=== PATIENT | female | born 1985 | race Caucasian/White ===

== ENCOUNTER 2019-12-20 16:37 | Emergency (ER) | payer SELFPAY ==
[2019-12-20 16:44] VITALS: BP 116/96; PULSE 95; RESP 20; TEMP 36.8; O2SAT 99; BMI 24.1
[2019-12-20 16:51] VITALS: O2SAT 98
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
--- NOTE | 2019-12-20 17:01 | XR_ITS ---
WS: [id number] XR wrist RT 2V [id number] REASON FOR EXAM: injury FINDINGS: The previously described fracture impacted of the radius is showing good healing and callus is seen replacing the fracture lines in the cleavage lines have disappeared. The remaining wrist appear to be essentially normal. XR/XR wrist RT 2V [id number] IMPRESSION: Healed fracture of the radius.
[2019-12-20] MEDS: ondansetron 2 mg/ML SDV 2 mL 4 MG IVP (18:55)
[2019-12-20] MEDS: morphine 4 mg/mL SDV 1 mL IVP (18:55)
[2019-12-20 19:54] VITALS: BP 109/82; PULSE 88; RESP 16; O2SAT 97
--- NOTE | 2019-12-23 10:21 | DCPLANNER ---
guard manager had message to schedule a follow up appointment for patient with ortho. guard manager called the ortho clinic, spoke with Sondra, gave clinic patients information. guard manager was told that patients information would be printed and reviewed. Clinic will call lining caser and patient with appointment information.
--- NOTE | 2019-12-27 13:59 | DCPLANNER ---
Patient has a follow up appointment scheduled for Friday, December 27, 2019 at 1:[address] Kirkpatrick. Clinic called patient with appointment information.
--- NOTE | 2019-12-28 15:34 | DCPLANNER ---
Patient did not attend appointment scheduled for 12.27.19 with ortho.
== END 2019-12-20 19:55 | disposition home or self-care (01) ==
PROVIDERS: Emergency Provider Family Medicine; Family Provider Family Medicine; PCP Family Medicine
DX: S63.501A Unspecified sprain of right wrist, initial encounter (principal); S66.811A Strain of other specified muscles, fascia and tendons at wrist and hand level, right hand, initial encounter; S52.91XD Unspecified fracture of right forearm, subsequent encounter for closed fracture with routine healing; E66.9 Obesity, unspecified; Z68.24 Body mass index [BMI] 24.0-24.9, adult; W01.0XXA Fall on same level from slipping, tripping and stumbling without subsequent striking against object, initial encounter; X58.XXXD Exposure to other specified factors, subsequent encounter
CPT/HCPCS: 29125; 73100; 96374; 96375; 99282; 99283; J2270; J2405

== ENCOUNTER 2020-05-14 01:08 | Emergency (ER) | payer SELFPAY ==
[2020-05-14] VITALS (12 sets, daily range): BP systolic 109–153; BP diastolic 84–107; PULSE 87–125; RESP 16–119; TEMP 36.6; O2SAT 93–97; BMI 22.3
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
[2020-05-14] MEDS: ondansetron 2 mg/ML SDV 2 mL 4 MG IVP ×2 (01:43→03:13)
[2020-05-14] MEDS: morphine 4 mg/mL SDV 1 mL IVP (01:44)
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
[2020-05-14] MEDS: LORazepam 2 mg/mL INJ 1 mL 1 MG IVP (02:30)
[2020-05-14] MEDS: HYDROmorphone 1 mg/mL INJ 1 mL IVP ×2 (03:12→03:36)
[2020-05-14] MEDS: iohexol 300 mg/mL 100 mL Btl IV (03:25)
[2020-05-14 04:25] LABS: Amphetamines Screen Urine Positive (Negative); Barbiturates Screen Urine Negative (Negative); Benzodiazepines Screen Urine Positive (Negative); Cocaine Screen Urine Negative (Negative); Opiate Screen Urine Positive (Negative); PCP Screen Urine Negative (Negative); THC Screen Urine Positive (Negative)
[2020-05-14] MEDS: haloperidol inj 5 mg/mL INJ 1 mL 2 MG IVP (04:33)
[2020-05-14 04:39] LABS: Bacteria Urine 1+; Bilirubin Urine Neg (NEGATIVE); Blood Urine Neg (Negative); Glucose Urine UA Norm (Normal); Ketones Urine Negative (Negative); Leukocyte Esterase Urine Trace (Negative); Mucus Urine 1+; Nitrate Urine Negative (Negative); Protein Urine Neg (Negative); RBC Urine 0-4 /hpf (0-2); Specific Gravity, Urine 1.025 (1.005-1.030); Urine Appearance SL Hazy (CLEAR); Urine Color Yellow (Yellow); Urobilinogen Urine Norm (Negative); pH Urine 5 (5-7)
--- NOTE | 2020-05-16 09:29 | PC.SOCIAL ---
Received call from our clinic indicating our Neurosurgeon will not start until at least July and the referral will need to be sent elsewhere. Attempted to contact patient at number provided and unable to reach or leave a message. Called Contact was able to leave a message and requested a return call as well as provided this nurses number.
--- NOTE | 2020-05-21 14:41 | PC.SOCIAL ---
Call received with message left on Thursday. This nurse was out of office. Called patient back at number provided and reached her friend. Explained calling from [facility] [place] friend indicates since she could not get ahold of anyone over weekend she decided this am to go to [place] to be seen. Had sent referral to Jolie in [place] prior to this call to try and get process moving. Told friend this. Will not cancel appt. Explained to friend if they call they can determine if appt still needed. She verbalized understanding. Had images uploaded to [facility] as well.
--- NOTE | 2020-05-25 10:57 | DCPLANNER ---
Patient has a follow up appointment scheduled for Friday, June 19, 2020 at 2:30 with LOOP DRIER OPERATOR, Koko Larsen. Clinic will call patient with appointment information.
--- NOTE | 2020-07-13 10:18 | DCPLANNER ---
Patient did attend the appointment scheduled for 06.19.20 with [facility].
== END 2020-05-14 05:33 | disposition home or self-care (01) ==
PROVIDERS: Emergency Provider Emergency Medicine
DX: S32.010A Wedge compression fracture of first lumbar vertebra, initial encounter for closed fracture (principal); S22.080A Wedge compression fracture of T11-T12 vertebra, initial encounter for closed fracture; V57.6XXA Passenger in pick-up truck or van injured in collision with fixed or stationary object in traffic accident, initial encounter; F17.210 Nicotine dependence, cigarettes, uncomplicated
CPT/HCPCS: 12345; 70450; 71260; 72125; 72128; 72131; 73110; 74177; 80306; 81001; 96374; 96375; 96376; 99284; J1170; J1630; J2060; J2270; J2405; Q9967

== ENCOUNTER 2021-03-24 12:31 | Emergency (ER) | payer SELFPAY ==
[2021-03-24 12:35] VITALS: BP 156/92; PULSE 104; RESP 15; TEMP 36.3; O2SAT 96; BMI 22.4
--- NOTE | 2021-03-24 12:41 | XRR_ITS ---
PROCEDURE INFORMATION: Exam: XR Chest Exam date and time: 03/24/2021 12:42 PM Age: 36 years old Clinical indication: Dyspnea; Additional info: Reduced breath sounds TECHNIQUE: Imaging protocol: XR of the chest. Views: 1 view. COMPARISON: CT chest abd pel w con* 05/14/2020 3:07 AM FINDINGS: Lungs: There are a few scattered granulomas seen in both lungs No consolidation. Pleural spaces: Unremarkable. No pleural effusion. No pneumothorax. Heart/Mediastinum: Unremarkable. No cardiomegaly. Bones/joints: Unremarkable. XR/XR chest 1V portable [id number] IMPRESSION: No acute findings.
[2021-03-24 12:43] VITALS: O2SAT 98
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
[2021-03-24] MEDS: orphenadrine 30 mg/mL Inj 2 mL 60 MG IM (12:54)
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
--- NOTE | 2021-03-24 13:15 | CTR_ITS ---
PROCEDURE INFORMATION: Exam: CT Lumbar Spine Without Contrast Exam date and time: 03/24/2021 1:20 PM Age: 36 years old Clinical indication: Low back pain; Patient HX: T-12/l-1 FX 1 year ago C/O worsening back pain; Additional info: T12/l1 compression fracture 1 year ago wearing tafl brace TECHNIQUE: Imaging protocol: Computed tomography images of the lumbar spine without contrast. Radiation optimization: All CT scans at this facility use at least one of these dose optimization techniques: automated exposure control; mA and/or kV adjustment per patient size (includes targeted exams where dose is matched to clinical indication); or iterative reconstruction. COMPARISON: CT lumbar spine wo con* [id number] 05/14/2020 2:57 AM RADIATION DOSE METRICS: Total DLP (mGy-cm): 1195.96 FINDINGS: Vertebrae: There are wedge compression fractures present involving the L 1 and L2 vertebral bodies. Normal alignment. Discs/Spinal canal/Neural foramina: No significant disc protrusion. No severe spinal canal stenosis. No significant neural foraminal narrowing. Soft tissues: Unremarkable. CT/CT lumbar spine wo con* [id number] IMPRESSION: 1. Compression fractures L1-L2 vertebral bodies 2. Otherwise negative examination Radiation Dose CTDIVOL = (mGy): DLP = 1195.96 (mGy-cm)
[2021-03-24 13:16] LABS: Basophils # 0.1 10^3/uL (0.0-0.1); Basophils % 0.7 %; Eosinophils # 0.2 10^3/uL (0.0-0.8); Eosinophils % 2.2 %; Hematocrit 47.2 % (37.0-47.0); Hemoglobin 15.9 g/dL (11.5-15.3); Lymphocytes # 2.3 10^3/uL (0.8-4.8); Lymphocytes % 31.4 %; Mean Corpuscular HGB Conc 33.7 g/dL (30.0-36.0); Mean Corpuscular Hemoglobin 30.5 pg (28.0-34.0); Mean Corpuscular Volume 90.4 fL (81-99); Mean Platelet Volume 10.8 fL (7.4-10.4); Monocytes # 0.4 10^3/uL (0.2-0.9); Monocytes % 5.5 %; Neutrophils # 4.33 10^3/uL (1.8-7.7); Neutrophils % 59.9 %; Nucleated Red Blood Cells % 0 %; Platelet Count 281 10^3/cmm (130-400); Red Blood Count 5.22 10^6/uL (4.1-5.3); Red Cell Distribution Width 13.2 % (12.1-15.1); White Blood Count 7.2 10^3/uL (4.0-10.0)
[2021-03-24 13:30] LABS: HCG, Serum Qual Negative (Negative)
[2021-03-24 13:38] LABS: Alanine Aminotransferase 6 U/L (0-33); Albumin Level 4.2 g/dL (3.5-5.2); Alkaline Phosphatase 73 IU/L (35-105); Blood Urea Nitrogen 8 mg/dL (6-20); Calcium 8.8 mg/dL (8.5-10.5); Carbon Dioxide 19 mmol/L (22-29); Chloride 102 mmol/L (98-107); Globulin 2.8 g/dL (1.3-4.6); Glomerular Filtration Rate 138.8 mL/min (90-130); Glucose 116 mg/dL (65-115); Osmolality Calculated 273 mOsm/kg (285-295); Sodium 132 mmol/L (136-145); Total Bilirubin 0.7 mg/dL (0.15-1.2)
[2021-03-24 13:43] LABS: Anion Gap 14.9 (5-19); Aspartate Amino Transferase 12 U/L (0-32); Potassium 3.9 mmol/L (3.5-5.1)
[2021-03-24 15:43] LABS: Add Urine Microscopic? YES; Bilirubin Urine 1+ (Negative); Blood Urine Neg (Negative); Glucose Urine UA Norm (Normal); Ketones Urine 3+ (Negative); Leukocyte Esterase Urine 1+ (Negative); Nitrate Urine Negative (Negative); Protein Urine Neg (Negative); Specific Gravity, Urine 1.025 (1.005-1.030); Urine Appearance Hazy (CLEAR); Urine Color Yellow (Yellow); Urobilinogen Urine 1 mg/dL (Negative); pH Urine 5 (5-7)
[2021-03-24 15:45] LABS: Bacteria Urine 2+ /hpf; Mucus Urine 2+ /hpf; Squamous Epithelial Cell Urine 15-25 /hpf (0-5)
[2021-03-24 15:46] LABS: Add Urine Culture? No
[2021-03-24] MEDS: ibuprofen 800 mg tablet PO (16:30)
[2021-03-24] MEDS: cephALEXin 500 mg Capsule PO (16:30)
--- NOTE | 2021-03-26 11:14 | DCPLANNER ---
water resource manager had message to schedule a follow up appointment for patient with ortho with Dr. Peña for L1/2 fracture. water resource manager called the ortho clinic, spoke with Luz, gave clinic patients information. water resource manager was told that patients information would be printed and reviewed. Clinic will call patient with appointment information.
--- NOTE | 2021-03-28 08:49 | DCPLANNER ---
Patient has a follow up appointment scheduled for Friday April 02, 2021 at 2:[address] Peña at [facility]. Clinic will call patient with appointment information.
--- NOTE | 2021-05-16 07:50 | DCPLANNER ---
Patient had a follow up appointment scheduled for 04.02.[address] [facility] - patient did attend appointment.
== END 2021-03-24 16:37 | disposition home or self-care (01) ==
PROVIDERS: Emergency Provider Family Medicine
DX: S32.019A Unspecified fracture of first lumbar vertebra, initial encounter for closed fracture (principal); S32.029A Unspecified fracture of second lumbar vertebra, initial encounter for closed fracture; V89.2XXA Person injured in unspecified motor-vehicle accident, traffic, initial encounter
CPT/HCPCS: 71045; 72128; 72131; 80053; 81001; 84703; 85025; 96372; 99283; J2360

== ENCOUNTER 2021-03-27 16:30 | Emergency (ER) | payer SELFPAY ==
[2021-03-27 16:34] VITALS: BP 113/77; PULSE 107; RESP 18; TEMP 36.7; O2SAT 98; BMI 22.4
--- NOTE | 2021-03-27 16:40 | XRR_ITS ---
PROCEDURE INFORMATION: Exam: XR Right Hip Exam date and time: 03/27/2021 4:52 PM Age: 36 years old Clinical indication: Injury or trauma; Fall; Blunt trauma (contusions or hematomas); Right; Pelvic region; Additional info: Fall; One view pelvis too please TECHNIQUE: Imaging protocol: XR Right hip. Views: 1 view hip with pelvis when performed. Total images: 3 COMPARISON: CT chest abd pel w con* 05/14/2020 3:07 AM FINDINGS: Bones/joints: Unremarkable. No acute fracture. Soft tissues: Unremarkable. XR/XR hip RT 2-3V wo/w pel* [id number] IMPRESSION: No acute findings.
--- NOTE | 2021-03-27 16:40 | XRR_ITS ---
PROCEDURE INFORMATION: Exam: XR Lumbosacral Spine Exam date and time: 03/27/2021 4:52 PM Age: 36 years old Clinical indication: Injury or trauma; Fall; Blunt trauma (contusions or hematomas); Additional info: Fall in the shower x today TECHNIQUE: Imaging protocol: XR of the lumbosacral spine. Views: 2 or 3 views. Total images: 3 COMPARISON: 1. CT lumbar spine wo con* [id number] 03/24/2021 1:[address] lumbar spine wo con* [id number] 05/14/2020 2:57:09 AM FINDINGS: Bones/joints: No visible acute osseous abnormality. Old compression fractures of L1 and L2 with vertebra plana L2. No visible traumatic spondylolysis or spondylolisthesis. Pedicles intact. Mild side bending. Intervertebral disc space heights preserved. Soft tissues: Unremarkable. XR/XR lumbar spine 2-3V* [id number] IMPRESSION: Nonacute.
--- NOTE | 2021-03-27 16:40 | XRR_ITS ---
PROCEDURE INFORMATION: Exam: XR Thoracic Spine Exam date and time: 03/27/2021 4:52 PM Age: 36 years old Clinical indication: Injury or trauma; Fall; Blunt trauma (contusions or hematomas); Additional info: Fall in shower x today TECHNIQUE: Imaging protocol: XR of the thoracic spine. Views: 3 views. Total images: 3 COMPARISON: CT thoracic spin wo con* [id number] 03/24/2021 1:54 PM FINDINGS: Bones/joints: No visible active or acute osseous abnormality. Right side bending. Pedicles intact. Intervertebral disc space heights appear preserved throughout. Again note of old compression deformities of L1 and L2. Soft tissues: Unremarkable. Lungs: Incidental note of calcified granulomas of antecedent disease of the lungs. XR/XR thoracic spine 3V* [id number] IMPRESSION: Nonacute
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
[2021-03-27] MEDS: ketorolac 10 mg Tablet PO (17:23)
[2021-03-27 18:09] VITALS: BP 115/72; PULSE 97; RESP 18; O2SAT 98
== END 2021-03-27 18:13 | disposition home or self-care (01) ==
PROVIDERS: Emergency Provider Nurse Practitioner Family
DX: F32.9 Major depressive disorder, single episode, unspecified (principal); F17.210 Nicotine dependence, cigarettes, uncomplicated
CPT/HCPCS: 72072; 72100; 73502; 99283

== ENCOUNTER → 2021-05-03 15:30 | Outpatient (BNVA) | payer SELFPAY | PROVIDERS: Visit Provider Family Medicine | DX: J01.00 Acute maxillary sinusitis, unspecified (principal); K52.9 Noninfective gastroenteritis and colitis, unspecified | CPT/HCPCS: 85025 ==

== ENCOUNTER 2022-07-16 10:00 | Emergency (ER) | payer SELFPAY ==
--- NOTE | 2022-07-16 10:03 | W.ED.ABDPA2 ---
HPI - Abdominal Pain General: Stated Complaint: Abd pain Time Seen by Provider: 07/16/22 10:01 Related Data: Date of Last Menstrual Period: 03/13/21 PFS ED PFSH: Social History Smoking and tobacco status: current every day smoker cigarettes Packs smoked per day: 0.5 Alcohol intake: never Female Reproductive History: Date of last menstrual period: 03/13/21 Discharge Plan Discharge Condition: Stable Prescriptions: No Action melatonin 5 mg capsule PO dicyclomine 20 mg tablet 20 mg PO TID Qty: 30 0RF Coding Level of Care Code ED Cupola Repairer for Adriana Villafuerte
[2022-07-16 10:07] VITALS: BP 120/84; PULSE 104; RESP 14; TEMP 36.6; O2SAT 98; BMI 24.0
[2022-07-16 10:11] VITALS: BP 128/95; PULSE 98; RESP 18; TEMP 36.9; O2SAT 96
--- NOTE | 2022-07-16 10:26 | W.ED.GENADLT ---
HPI - General Adult General: Chief complaint: Nausea/Vomiting/Diarrhea Stated complaint: Abd pain Time Seen by Provider: 07/16/22 10:01 History of Present Illness: Patient is a 37-year-old female with no significant past medical history presents emergency room with complaints of cough, upper abdominal pain, nausea/vomiting and diarrhea for the last 4 days. Patient states that her symptoms has been going on for 4 days. Patient uses bathroom every 4 hours and reports stool is loose liquid and watery. Patient denies any melena hematochezia. Patient denies any tenesmus. Patient has no complaints of urinary symptoms for tenesmus. Patient reports nausea and ongoing decreased appetite. There is no sick contact around the patient. Patient denies any recent antibiotics, hospitalization, or travel. In addition, patient reports symptoms of cough and sore throat for 4 days as well. Denies nausea/vomiting, chest pain, shortness of breath Onset:4 days ago Duration:4 days Location:home Severity:moderate Associated symptoms: Reports nausea and vomiting; Deny chest pain, dyspnea, rash or palpitations Review of Systems Const: Denies: fever(s) or chills Eyes: Denies: change in vision ENMT: Denies: mouth pain Card: Denies: chest pain or palpitations Resp: Reports: non-productive cough; Denies: dyspnea GI: Reports: abdominal pain (+lower ad pain), nausea, vomiting and diarrhea : Denies: dysuria Musc: Denies: extremity pain Skin/Breast: Denies: rash or new lesions Neuro: Denies: weakness in extremities Psych: Reports: other (Normal mood) Chauncey/Lymph: Denies: easy bruising PFS ED PFSH: Medical History No pertinent past medical history Social History Smoking and tobacco status: current every day smoker cigarettes Packs smoked per day: 0.5 Alcohol intake: never Substance/Drug Use: never Physical Exam Const: COMMON NORMALS: alert HENMT: COMMON NORMALS: atraumatic HEAD & SCALP: atraumatic MOUTH: moist mucous membranes abnormal Eye: COMMON NORMALS: EOMs intact bilaterally and conjunctivae normal CONJUNCTIVA: Yes conjunctivae normal Neck/C-Spine: COMMON NORMALS: full ROM and supple Resp: COMMON NORMALS: normal respiratory effort and clear to auscultation bilaterally AUSCULTATION: clear to auscultation bilaterally Cardio: COMMON NORMALS: regular rate RATE: regular rate GI: COMMON NORMALS: Soft to palpation and non-tender PALPATION: Yes Soft to palpation OTHER: +mild mid epigastric focal TTP. NO guarding rebound, guarding, rigidity. No CVA tenderness to percussion. Neg Spaulding/Neg McBurney's point tenderness, no suprabupic tenderness to palpation. Extremity: COMMON NORMALS: full ROM Neuro: SENSORIUM/ORIENTATION: Yes alert MOTOR EXAM: No Abnormal motor strength present and Other motor observations present (no focal motor deficits) Psych: COMMON NORMALS: speech normal SPEECH: Yes normal speech MOOD & AFFECT: Yes euthymic mood Course Vital Signs: Vital signs: Vital Signs Temperature 98.5 F 07/16/22 10:11 Pulse Rate 92 07/16/22 10:41 Respiratory Rate 18 07/16/22 10:41 Blood Pressure 119/90 07/16/22 10:41 Pulse Oximetry 95 07/16/22 10:41 Oxygen Delivery Me thod 07/16/22 10:41 [facility] - General Adult Medical Decision Making Patient is a 37-year-old female with no significant past medical history presents emergency room with complaints of cough, upper abdominal pain, nausea/vomiting and diarrhea for the last 4 days. Exam, patient has mild midepigastric Judah tenderness. No guarding or rebound tenderness. Patient is hemodynamically stable in no acute distress. Lab work-up showed white count 10.6. Patient is mildly hemoconcentrated 15.9. Rest of lab including UA is unremarkable. Patient received IVF and GI cocktail. Feeling symptomatically improved. Patient's COVID is negative. No suspicion for other acute intra-abdominal pathology including SBO, biliary pathology, appendicitis, diverticulitis, or other emergent condition requiring surgery. Rx tylenol PRN abd pain, maalox/pepcid PRN dyspepsia, and zofran PRN nausea/vomiting Disposition: Discharge. Patient counseled regarding diagnostic impression, treatment plan. Patient given ED strict return precautions to return for continuation, worsening, or development of new symptoms. Instructed to f/u w/ PCP regarding symptoms today. Patient verbalized understanding. Lab Data : 07/16/22 10:30 07/16/22 10:30 Laboratory Results WBC 10.6 10^3/uL (4.0-10.0) H 07/16/22 10:30 RBC 5.21 10^6/uL (4.1-5.3) 07/16/22 10:30 Hgb 15.9 g/dL (11.5-15.3) H 07/16/22 10:30 Hct 48.7 % (37.0-47.0) H 07/16/22 10:30 MCV 93.5 fl (81-99) 07/16/22 10:30 MCH 30.5 pg (28.0-34.0) 07/16/22 10:30 MCHC 32.6 g/dL (30.0-36.0) 07/16/22 10:30 RDW 13.7 % (12.1-15.1) 07/16/22 10:30 Plt Count 321 10^3/cmm (130-400) 07/16/22 10:30 MPV 10.4 fL (7.4-10.4) 07/16/22 10:30 Neut % (Auto) 75.4 % 07/16/22 10:30 Lymph % (Auto) 18.4 % 07/16/22 10:30 Scott % (Auto) 3.9 % 07/16/22 10:30 Eos % (Auto) 1.6 % 07/16/22 10:30 Baso % (Auto) 0.4 % 07/16/22 10:30 Neut # (Auto) 7.96 10^3/uL (1.8-7.7) H 07/16/22 10:30 Lymph # (Auto) 1.9 10^3/uL (0.8-4.8) 07/16/22 10:30 Scott # (Auto) 0.4 10^3/uL (0.2-0.9) 07/16/22 10:30 Eos # (Auto) 0.2 10^3/uL (0.0-0.8) 07/16/22 10:30 Baso # (Auto) 0.0 10^3/uL (0.0-0.1) 07/16/22 10:30 Nucleated RBC % (auto) 0 % 07/16/22 10:30 Nucleated RBCs # 0.0 /100WBC 07/16/22 10:30 Sodium 137 mmol/L (136-145) 07/16/22 10:30 Potassium 4.3 mmol/L (3.5-5.1) 07/16/22 10:30 Chloride 105 mmol/L (98-107) 07/16/22 10:30 Carbon Dioxide 20 mmol/L (22-29) L 07/16/22 10:30 Anion Gap 16.3 (5-19) 07/16/22 10:30 BUN 6 mg/dL (6-20) 07/16/22 10:30 Creatinine 0.7 mg/dL (0.5-0.9) 07/16/22 10:30 GFR Calculation 93.6 mL/min (90-130) 07/16/22 10:30 Glucose 121 mg/dL (65-115) H 07/16/22 10:30 Calculated Osmolality 283 mOsm/kg (285-295) L 07/16/22 10:30 Calcium 9.3 mg/dL (8.5-10.5) 07/16/22 10:30 Total Bilirubin 0.5 mg/dL (0.15-1.2) 07/16/22 10:30 AST 10 U/L (0-32) 07/16/22 10:30 ALT 7 U/L (0-33) 07/16/22 10:30 Alkaline Phosphatase 83 U/L (35-105) 07/16/22 10:30 Total Protein 7.5 g/dL (6.6-8.7) 07/16/22 10:30 Albumin 4.5 g/dL (3.5-5.2) 07/16/22 10:30 Globulin 3.0 g/dL (1.3-4.6) 07/16/22 10:30 Lipase 14 U/L (13-60) 07/16/22 10:30 HCG, Qual Negative (Negative) 07/16/22 11:20 Urine Color Yellow (Yellow) 07/16/22 11:20 Urine Appearance Clear (CLEAR) 07/16/22 11:20 Urine pH 7.0 (5-7) 07/16/22 11:20 Ur Specific [place] 1.015 (1.005-1.030) 07/16/22 11:20 Urine Protein Negative (Negative) 07/16/22 11:20 Urine Glucose (UA) Negative (Normal) 07/16/22 11:20 Urine Ketones Negative (Negative) 07/16/22 11:20 Urine Blood Negative (Negative) 07/16/22 11:20 Urine Nitrate Negative 07/16/22 11:20 Urine Bilirubin Negative (Negative) 07/16/22 11:20 Urine Urobilinogen 0.2 mg/dL (Negative) 07/16/22 11:20 Ur Leukocyte Esterase Trace 07/16/22 11:20 Urine RBC 0-4 /hpf (0-2) H 07/16/22 11:20 Urine WBC None /hpf (0-5) 07/16/22 11:20 Ur Squamous Epith Cells 0-4 /hpf (0-5) H 07/16/22 11:20 Amorphous Sediment Not Reportable 07/16/22 11:20 Urine Bacteria Trace /hpf (NONE) 07/16/22 11:20 Coronavirus 229E (PCR) Not detected (NOT DETECT) 07/16/22 11:00 SARS-CoV-2 (PCR) Not detected (NOT DETECT) 07/16/22 11:00 Discharge Plan Discharge Patient Disposition: Home Clinical Impression: Abdominal pain, Nausea & vomiting, Diarrhea Condition: Stable Prescriptions: New acetaminophen 500 mg tablet 500 mg PO Q6H PRN (Reason: pain) 5 Days Qty: 20 0RF Pepcid 20 mg tablet 20 mg PO BID PRN (Reason: abdominal pain) 10 Days Qty: 20 0RF ondansetron 4 mg tablet,disintegrating 4 mg PO TID PRN (Reason: nausea and vomiting) 4 Days Qty: 12 0RF Maalox Advanced 1,000-60 mg tablet,chewable 1 tab PO TID PRN (Reason: abdominal pain) 7 Days Qty: 21 0RF No Action melatonin 5 mg capsule PO dicyclomine 20 mg tablet 20 mg PO TID Qty: 30 0RF Discharge Orders: Discharge ED (Routine); Ordered 07/16/22 Ordered By: Akiko Landrum Discharge Diet: Advance as tolerated Discharge Activity: Increase activity as tolerated Patient Instructions: Acute Diarrhea (ED), Abdominal Pain (ED) Activity Restrictions/Additional Instructions: Please come back if you have any worsening abdominal pain, fever or chills, nausea or vomiting, diarrhea, blood in the stool, inability hold down liquid or solids, or any new concerning complaints. Stand Alone Forms: Work/School Release Coding Level of Care Code ED Client Care Specialist for Chg Fwd Exam Comprehensive
[2022-07-16 10:40] LABS: Basophils % 0.4 %; Eosinophils # 0.2 10^3/uL (0.0-0.8); Eosinophils % 1.6 %; Hematocrit 48.7 % (37.0-47.0); Hemoglobin 15.9 g/dL (11.5-15.3); Lymphocytes # 1.9 10^3/uL (0.8-4.8); Lymphocytes % 18.4 %; Mean Corpuscular HGB Conc 32.6 g/dL (30.0-36.0); Mean Corpuscular Hemoglobin 30.5 pg (28.0-34.0); Mean Corpuscular Volume 93.5 fl (81-99); Mean Platelet Volume 10.4 fL (7.4-10.4); Monocytes # 0.4 10^3/uL (0.2-0.9); Monocytes % 3.9 %; Neutrophils # 7.96 10^3/uL (1.8-7.7); Neutrophils % 75.4 %; Nucleated Red Blood Cells % 0 %; Platelet Count 321 10^3/cmm (130-400); Red Blood Count 5.21 10^6/uL (4.1-5.3); Red Cell Distribution Width 13.7 % (12.1-15.1); White Blood Count 10.6 10^3/uL (4.0-10.0)
[2022-07-16 10:41] VITALS: BP 119/90; PULSE 92; RESP 18; O2SAT 95
[2022-07-16] MEDS: lactated ringers 1,000 ML 999 ML IV ×2 (10:51)
[2022-07-16 11:03] LABS: Alanine Aminotransferase 7 U/L (0-33); Albumin Level 4.5 g/dL (3.5-5.2); Alkaline Phosphatase 83 U/L (35-105); Anion Gap 16.3 (5-19); Aspartate Amino Transferase 10 U/L (0-32); Blood Urea Nitrogen 6 mg/dL (6-20); Calcium 9.3 mg/dL (8.5-10.5); Carbon Dioxide 20 mmol/L (22-29); Chloride 105 mmol/L (98-107); Glomerular Filtration Rate 93.6 mL/min (90-130); Glucose 121 mg/dL (65-115); Lipase 14 U/L (13-60); Osmolality Calculated 283 mOsm/kg (285-295); Potassium 4.3 mmol/L (3.5-5.1); Sodium 137 mmol/L (136-145); Total Bilirubin 0.5 mg/dL (0.15-1.2); Total Protein 7.5 g/dL (6.6-8.7)
[2022-07-16] MEDS: lidocaine 2% viscous 15 ML, aluminum-mag hydrox-simethicon 30 ML, sucralfate oral liq 1 GM PO (11:55)
[2022-07-16 11:57] LABS: HCG Qualitative Urine. Negative (Negative)
[2022-07-16 11:59] LABS: Bilirubin Urine Negative (Negative); Blood Urine Negative (Negative); Glucose Urine UA Negative (Normal); Ketones Urine Negative (Negative); Leukocyte Esterase Urine Trace; Nitrate Urine Negative; Protein Urine Negative (Negative); Specific Gravity, Urine 1.015 (1.005-1.030); Urine Appearance Clear (CLEAR); Urine Color Yellow (Yellow); Urobilinogen Urine 0.2 mg/dL (Negative)
[2022-07-16 12:15] LABS: Add Urine Microscopic? YES; Bacteria Urine TRACE /hpf; RBC Urine 0-4 /hpf (0-2); Squamous Epithelial Cell Urine 0-4 /hpf (0-5)
[2022-07-16 13:14] LABS: Adenovirus Not Detected (NOT DETECT); Chlamydia Pneumoniae Not Detected (NOT DETECT); Coronavirus 229E,HKU1,NL63,OC4 Not Detected (NOT DETECT); Human Metapneumovirus Not Detected (NOT DETECT); Human Rhinovirus/Enterovirus Not Detected (NOT DETECT); Influenza A Not Detected (NOT DETECT); Influenza A H1 Not Detected (NOT DETECT); Influenza A H1-2009 Not Detected (NOT DETECT); Influenza A H3 Not Detected (NOT DETECT); Influenza B Not Detected (NOT DETECT); Mycoplasma Pneumoniae Not Detected (NOT DETECT); Parainfluenza Virus Type 1 Not Detected (NOT DETECT); Parainfluenza Virus Type 2 Not Detected (NOT DETECT); Parainfluenza Virus Type 3 Not Detected (NOT DETECT); Parainfluenza Virus Type 4 Not Detected (NOT DETECT); Respiratory Syncytial Virus A Not Detected (NOT DETECT); Respiratory Syncytial Virus B Not Detected (NOT DETECT); SARS-COV-2 Not Detected (NOT DETECT)
== END 2022-07-16 13:42 | disposition home or self-care (01) ==
PROVIDERS: Family Medicine; Emergency Provider Emergency Medicine; PCP Family Medicine
DX: R10.9 Unspecified abdominal pain (principal); R11.2 Nausea with vomiting, unspecified; R19.7 Diarrhea, unspecified; Z20.822 Contact with and (suspected) exposure to COVID-19; F17.210 Nicotine dependence, cigarettes, uncomplicated
CPT/HCPCS: 80053; 81001; 81025; 83690; 85025; 87635; 99284

== ENCOUNTER 2022-09-15 06:11 | Inpatient (IN) | payer MEDICAID, SELFPAY ==
[2022-09-15] VITALS (10 sets, daily range): BP systolic 99–158; BP diastolic 58–91; PULSE 78–125; RESP 14–24; TEMP 36.8–37.4; O2SAT 96–98; BMI 24.1
--- NOTE | 2022-09-15 06:32 | W.ED.ABDPA2 ---
HPI - Abdominal Pain General: Chief Complaint: Nausea/Vomiting/Diarrhea Stated Complaint: n/v/d Time Seen by Provider: 09/15/22 06:21 Source: patient Mode of arrival: ambulatory History of Present Illness: 37-year-old female presents emergency room with complaint of nausea and vomiting fever for the last 2 days she initially had some diarrhea that seems to have resolved denies any hematochezia melena hematemesis or coffee-ground emesis. She is not noted any hematuria no dysuria urgency or frequency. Is complaining of suprapubic and Left sided abdominal pain. MD elicited complaint: abdominal pain Onset (ago): hour(s) Pain Consistency: constant Location: RUQ Severity: moderate Quality: cramping Radiation: none Migration to: no migration Exacerbating factors: nothing Relieving factors: nothing Associated Symptoms: Reports bloating, GI cramping, fever(s), nausea, poor appetite and vomiting; Denies anorexia, belching, change in bowel habits, change in stool character, chills, coffee ground emesis, constipation, diarrhea, dyspepsia, dysuria, excessive flatus, heartburn, hematochezia, hematuria, hematemesis, fecal incontinence, loose stools, melena and syncope Treatments prior to arrival: other (OTC antipyretics) Review of Systems Const: Reports: fever(s), fatigue and malaise; Denies: chills ENMT: Denies: throat pain, ear or mastoid pain, nasal discharge or nasal congestion Card: Denies: chest pain, palpitations, irregular heart rhythm, edema or syncope Resp: Denies: dyspnea, productive cough or non-productive cough GI: Reports: abdominal pain, nausea, vomiting, bloating and GI cramping; Denies: hematemesis, coffee ground emesis, heartburn, diarrhea, constipation, belching, excessive flatus, fecal incontinence, change in bowel habits, change in stool character, hematochezia or melena : Denies: flank pain, difficulty voiding, dysuria, urinary frequency, urinary urgency or hematuria Skin/Breast: Denies: rash or pruritus PFSH ED PFSH: Medical History No pertinent past medical history Social History Smoking and tobacco status: current every day smoker cigarettes Packs smoked per day: 0.5 Alcohol intake: never Physical Exam Const: GENERAL APPEARANCE: cooperative ORIENTATION/CONSCIOUSNESS: Yes awake, Yes oriented to person, Yes oriented to place and Yes oriented to time HENMT: COMMON NORMALS: normocephalic, atraumatic and hearing grossly normal bilaterally HEAD & SCALP: normocephalic and atraumatic Resp: COMMON NORMALS: normal respiratory effort, No retractions, No use of accessory muscles and clear to auscultation bilaterally AUSCULTATION: clear to auscultation bilaterally Cardio: COMMON NORMALS: regular rate, regular rhythm and No murmurs present (Cardio) RATE: regular rate RHYTHM: regular rhythm GI: COMMON NORMALS: No hepatosplenomegaly present AUSCULTATION: Yes normoactive bowel sounds PALPATION: Yes Tenderness to palpation present (GI) Details: RUQ, No Guarding due to palpation present (GI) and Yes No hepatosplenomegaly present : BLADDER/KIDNEY EXAM: Yes CVA tenderness Back/Pelvis: GENERAL BACK: Yes CVA tenderness CVA tenderness: left Extremity: COMMON NORMALS: normal to inspection, capillary refill normal, no clubbing, cyanosis or edema, no calf tenderness and no pedal edema Neuro: SENSORIUM/ORIENTATION: Yes oriented to person, Yes oriented to place and Yes oriented to time Skin: COMMON NORMALS: no rashes or lesions noted GENERAL SKIN EXAM: no rashes or lesions noted Course Vital Signs: Vital signs: Vital Signs Temperature 99.3 F 09/15/22 06:14 Pulse Rate 125 H 09/15/22 06:14 Respiratory Rate 20 H 09/15/22 06:14 Blood Pressure 149/91 09/15/22 06:14 Pulse Oximetry 96 09/15/22 06:14 Oxygen Delivery Me thod 09/15/22 06:14 MDM - Abdominal Pain Medical Decision Making CT shows pyelonephritis no evidence of obstruction or abscess. Cultures done and started on IV antibiotics white count of 23 with a left shift we will admit to the hospitalist. Medical Records I reviewed the patient's medical records. Lab Data I reviewed the patient's lab results. 09/15/22 06:30 09/15/22 06:30 Labs/Radiology: Radiology Impressions Chest X-Ray 09/15/22 06:34 IMPRESSION: No acute findings. Abdomen/Pelvis CT 09/15/22 08:11 IMPRESSION: 1. No obstructing renal or ureteral calculi. 2. Inflammatory stranding and edema about the LEFT greater than RIGHT kidneys most compatible with pyelonephritis. Small amount of fluid and edema in the perinephric space and retroperitoneum bilaterally. Contrast not administered. 3. No hydronephrosis. 4. Hepatomegaly. 5. Small esophageal hiatal hernia. 6. Prominent uterus with fluid or endometrial thickening likely physiologic. 7. Chronic compression fractures L1 and L2 unchanged. Notified Alex Rivera DO at 09/15/2022 9:13 AM. Laboratory Results WBC 23.5 10^3/uL (4.0-10.0) H 09/15/22 06:30 RBC 5.16 10^6/uL (4.1-5.3) 09/15/22 06:30 Hgb 15.6 g/dL (11.5-15.3) H 09/15/22 06:30 Hct 45.4 % (37.0-47.0) 09/15/22 06:30 MCV 88.0 fl (81-99) 09/15/22 06:30 MCH 30.2 pg (28.0-34.0) 09/15/22 06:30 MCHC 34.4 g/dL (30.0-36.0) 09/15/22 06:30 RDW 12.5 % (12.1-15.1) 09/15/22 06:30 Plt Count 236 10^3/cmm (130-400) 09/15/22 06:30 MPV 10.5 fL (7.4-10.4) H 09/15/22 06:30 Neut % (Auto) 89.7 % 09/15/22 06:30 Lymph % (Auto) 3.2 % 09/15/22 06:30 Phelps % (Auto) 5.9 % 09/15/22 06:30 Eos % (Auto) 0.0 % 09/15/22 06:30 Baso % (Auto) 0.2 % 09/15/22 06:30 Neut # (Auto) 21.12 10^3/uL (1.8-7.7) H 09/15/22 06:30 Lymph # (Auto) 0.8 10^3/uL (0.8-4.8) 09/15/22 06:30 Phelps # (Auto) 1.4 10^3/uL (0.2-0.9) H 09/15/22 06:30 Eos # (Auto) 0.0 10^3/uL (0.0-0.8) 09/15/22 06:30 Baso # (Auto) 0.0 10^3/uL (0.0-0.1) 09/15/22 06:30 Nucleated RBC % (auto) 0 % 09/15/22 06:30 Nucleated RBCs # 0.0 /100WBC 09/15/22 06:30 Sodium 128 mmol/L (136-145) L 09/15/22 06:30 Potassium 3.4 mmol/L (3.5-5.1) L 09/15/22 06:30 Chloride 92 mmol/L (98-107) L 09/15/22 06:30 Carbon Dioxide 22 mmol/L (22-29) 09/15/22 06:30 Anion Gap 17.4 (5-19) 09/15/22 06:30 BUN 11 mg/dL (6-20) 09/15/22 06:30 Creatinine 0.7 mg/dL (0.5-0.9) 09/15/22 06:30 GFR Calculation 93.6 mL/min (90-130) 09/15/22 06:30 Glucose 153 mg/dL (65-115) H 09/15/22 06:30 Calculated Osmolality 268 mOsm/kg (285-295) L 09/15/22 06:30 Lactic Acid 2.0 mmol/L (0.5-2.2) 09/15/22 06:30 Calcium 9.1 mg/dL (8.5-10.5) 09/15/22 06:30 Total Bilirubin 1.1 mg/dL (0.15-1.2) 09/15/22 06:30 AST 10 U/L (0-32) 09/15/22 06:30 ALT 7 U/L (0-33) 09/15/22 06:30 Alkaline Phosphatase 99 U/L (35-105) 09/15/22 06:30 Total Protein 7.2 g/dL (6.6-8.7) 09/15/22 06:30 Albumin 4.0 g/dL (3.5-5.2) 09/15/22 06:30 Globulin 3.2 g/dL (1.3-4.6) 09/15/22 06:30 Lipase 6 U/L (13-60) L 09/15/22 06:30 HCG, Qual Negative (Negative) 09/15/22 06:30 Urine Color Yellow (Yellow) 09/15/22 07:33 Urine Appearance Cloudy (CLEAR) A 09/15/22 07:33 Urine pH 8 (5-7) H 09/15/22 07:33 Ur Specific [place] 1.010 (1.005-1.030) 09/15/22 07:33 Urine Protein 1+ (Negative) H 09/15/22 07:33 Urine Glucose (UA) Norm (Normal) 09/15/22 07:33 Urine Ketones Negative (Negative) 09/15/22 07:33 Urine Blood Neg (Negative) 09/15/22 07:33 Urine Nitrate Positive (Negative) H 09/15/22 07:33 Urine Bilirubin Neg (Negative) 09/15/22 07:33 Prot Sulfosalicylic Acd Positive (Negative) 09/15/22 07:33 Urine Urobilinogen Norm mg/dL (Negative) 09/15/22 07:33 Ur Leukocyte Esterase 1+ (Negative) H 09/15/22 07:33 Urine RBC 0-4 /hpf (0-2) H 09/15/22 07:33 Urine WBC 80-100 /hpf (0-5) H 09/15/22 07:33 Ur Squamous Epith Cells 5-10 /hpf (0-5) H 09/15/22 07:33 Amorphous Sediment Not Reportable 09/15/22 07:33 Urine Bacteria 3+ /hpf (NONE) H 09/15/22 07:33 Urine Mucus 1+ /hpf 09/15/22 07:33 Influenza Type A Ag negative (Negative) 09/15/22 07:16 Influenza Type B Ag negative (Negative) 09/15/22 07:16 Discharge Plan Discharge Patient Disposition: Admitted As Inpatient Clinical Impression: Pyelonephritis Condition: Stable Coding Level of Care Code ED Manager Of Enterprise for Chg Fwd Exam Detailed
--- NOTE | 2022-09-15 06:34 | XRR_ITS ---
PROCEDURE INFORMATION: Exam: XR Chest Exam date and time: 09/15/2022 8:02 AM Age: 37 years old Clinical indication: Fever and other: N/v/d; Additional info: Dyspnea/cough TECHNIQUE: Imaging protocol: Radiologic exam of the chest. Views: 1 view. COMPARISON: CR XR chest 1V portable [id number] 03/24/2021 1:23 PM FINDINGS: Lungs: Unremarkable. No consolidation. Pleural spaces: Unremarkable. No pleural effusion. No pneumothorax. Heart/Mediastinum: Unremarkable. No cardiomegaly. Bones/joints: Unremarkable. XR/XR chest 1V portable [id number] IMPRESSION: No acute findings.
--- NOTE | 2022-09-15 06:40 | ECG_ITS ---
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 Measurements Intervals [place] Rate: 121 P: 64 NM: 127 QRS: 88 QRSD: 96 T: 62 QT: 428 QTc: 610 Interpretive Statements SINUS TACHYCARDIA INCOMPLETE RIGHT BUNDLE BRANCH BLOCK [90+ ms QRS DURATION, TERMINAL R IN V1/V2, 40+ ms S IN I/aVL/V4/V5/V6] MODERATE T-WAVE ABNORMALITY, CONSIDER INFERIOR ISCHEMIA [-0.1+ mV T-WAVE IN II/aVF] No previous ECG available for comparison Electronically Signed On 09-15-2022 14:22:21 DISTRIBUTOR CLEANER by Daryl Rice M.D. [id number]
[2022-09-15 06:45] LABS: Basophils % 0.2 %; Hematocrit 45.4 % (37.0-47.0); Hemoglobin 15.6 g/dL (11.5-15.3); Lymphocytes # 0.8 10^3/uL (0.8-4.8); Lymphocytes % 3.2 %; Mean Corpuscular HGB Conc 34.4 g/dL (30.0-36.0); Mean Corpuscular Hemoglobin 30.2 pg (28.0-34.0); Mean Platelet Volume 10.5 fL (7.4-10.4); Monocytes # 1.4 10^3/uL (0.2-0.9); Monocytes % 5.9 %; Neutrophils # 21.12 10^3/uL (1.8-7.7); Neutrophils % 89.7 %; Nucleated Red Blood Cells % 0 %; Platelet Count 236 10^3/cmm (130-400); Red Blood Count 5.16 10^6/uL (4.1-5.3); Red Cell Distribution Width 12.5 % (12.1-15.1); White Blood Count 23.5 10^3/uL (4.0-10.0)
[2022-09-15] MEDS: sodium chloride 0.9% 1,000 ML 999 ML IV ×2 (06:48→09:10)
[2022-09-15] MEDS: ondansetron 2 mg/ML SDV 2 mL 4 MG IVP ×4 (06:48→22:56)
[2022-09-15 07:00] LABS: HCG, Serum Qual Negative (Negative)
[2022-09-15 07:01] LABS: Alanine Aminotransferase 7 U/L (0-33); Alkaline Phosphatase 99 U/L (35-105); Anion Gap 17.4 (5-19); Aspartate Amino Transferase 10 U/L (0-32); Blood Urea Nitrogen 11 mg/dL (6-20); Calcium 9.1 mg/dL (8.5-10.5); Carbon Dioxide 22 mmol/L (22-29); Chloride 92 mmol/L (98-107); Globulin 3.2 g/dL (1.3-4.6); Glomerular Filtration Rate 93.6 mL/min (90-130); Glucose 153 mg/dL (65-115); Lipase 6 U/L (13-60); Osmolality Calculated 268 mOsm/kg (285-295); Potassium 3.4 mmol/L (3.5-5.1); Sodium 128 mmol/L (136-145); Total Bilirubin 1.1 mg/dL (0.15-1.2); Total Protein 7.2 g/dL (6.6-8.7)
[2022-09-15] MEDS: acetaminophen 325 mg Tablet 650 MG PO (07:10)
[2022-09-15 07:44] LABS: Influenza A by IFA negative (Negative); Influenza B by IFA negative (Negative)
[2022-09-15 07:57] LABS: Add Urine Microscopic? YES; Bilirubin Urine Neg (Negative); Blood Urine Neg (Negative); Glucose Urine UA Norm (Normal); Ketones Urine Negative (Negative); Leukocyte Esterase Urine 1+ (Negative); Nitrate Urine Positive (Negative); Protein Urine 1+ (Negative); Urine Appearance Cloudy (CLEAR); Urine Color Yellow (Yellow); Urobilinogen Urine Norm (Negative); pH Urine 8 (5-7)
--- NOTE | 2022-09-15 08:11 | CT_ITS ---
WS: [id number] CT ABDOMEN PELVIS TECHNIQUE: Noncontrast CT of the abdomen and pelvis with coronal and sagittal reformatted images. CLINICAL INFORMATION: flank pain COMPARISON: 2019 DLP: 371.[address] scans at [facility] use at least one of these dose optimization techniques: automated e xposure control; mA and/or kV adjustment per patient size (includes targeted exams where dose is matc hed to clinical indication); or iterative reconstruction. FINDINGS: Inflammatory stranding and edema about both kidneys LEFT greater than RIGHT likely due to pyelonephri tis. Contrast not administered. Small amount of fluid and edema in the perinephric spaces and retrope ritoneum bilaterally. No visualized obstructing renal or ureteral calculi. Pelvic phleboliths. Hepatomegaly. Splenic granulomas. Lung bases are well aerated. Adrenal glands are normal. Prominent u terus with endometrial thickening thickening likely physiologic. Chronic compression fractures L1 and L2 unchanged. Tiny fat-containing umbilical hernia. CT/CT kidney stone [id number] IMPRESSION: 1. No obstructing renal or ureteral calculi. 2. Inflammatory stranding and edema about the LEFT greater than RIGHT kidneys most compatible with pyelonephritis. Small amount of fluid and edema in the per inephric space and retroperitoneum bilaterally. Contrast not administered. 3. No hydronephrosis. 4. Hepatomegaly. 5. Small esophageal hiatal hernia. 6. Prominent uterus with fluid or endometrial thickening likely physiologic. 7. Chronic compression fractures L1 and L2 unchanged. Notified Alex Rivera DO at 09/15/2022 9:13 AM.
[2022-09-15 08:12] LABS: Add Urine Culture? Yes; Bacteria Urine 3+ /hpf; Mucus Urine 1+ /hpf; RBC Urine 0-4 /hpf (0-2); Sulfosalicylic Acid Urine Positive (Negative); WBC Urine 80-100 /hpf (0-5)
[2022-09-15] MEDS: cefTRIAXone 1,000 MG in sodium chloride 0.9% (plus) 50 ML 100 MG IV ×2 (08:58→20:10)
[2022-09-15] MEDS: morphine 4 mg/mL SDV 1 mL IVP (09:43)
--- NOTE | 2022-09-15 09:44 | PM.HP ---
Providers/Chief Complaint Admitting Physician: David Montana MD, hospitalist Primary Care Provider: Ruben Wood MD Chief Complaint: n/v/d History of Present Illness Molly Dixon is a 37 year old female presenting to the emergency department with complaints of back pain, nausea, vomiting, and fever up to 101.3 ?F at home for the last 3 days. She reports she has not been able To keep much liquid down. She had loose stools up until yesterday. No ill contacts. Has been having some suprapubic discomfort as well. No blood in her vomit, stool, or black or tarry stool. Denies any past history of pyelonephritis. Review of Systems General: Reports: 10 or more systems reviewed and unremarkable except in HPI and below Const: Reports: fever(s) and chills Eyes: Denies: change in vision ENMT: Denies: throat pain Card: Denies: chest pain Resp: Denies: dyspnea GI: Reports: abdominal pain, nausea and vomiting; Denies: hematemesis, hematochezia or melena : Reports: flank pain and dysuria Musc: Reports: back pain; Denies: neck pain Skin/Breast: Denies: rash Neuro: Denies: headache(s) Psych: Denies: anxiety Endo: Denies: polyuria Chauncey/Lymph: Denies: easy bruising All/Imm: Denies: urticaria Medications/Allergies Home Medications Medication Instructions Recorded Confirmed Last Taken Type aspirin 81 mg tablet,delayed 81 mg PO DAILY 09/15/22 09/15/22 09/14/22 History release melatonin 10 mg tablet 20 mg PO BEDTIME 09/15/22 09/15/22 09/14/22 History Allergies Allergy/AdvReac Type Severity Reaction Status Date / Time codeine Allergy ADR-Confusi Verified 09/15/22 09:35 on PFSH Acute PFSH: Medical History History of depression No pertinent past medical history Surgical History (Updated 09/15/22 @ 09:47 by David Montana MD) H/O tubal ligation History of dental surgery History of hemorrhoidectomy Family History Other CAD (coronary artery disease) Diabetes Social History Smoking and tobacco status: current every day smoker cigarettes Packs smoked per day: 0.5 Alcohol intake: never Vitals/I&O/Wt Last Vital Signs Temp 99.3 F 09/15/22 06:14 Pulse 125 H 09/15/22 06:14 Resp 20 H 09/15/22 06:14 BP 149/91 09/15/22 06:14 Pulse Ox 96 09/15/22 06:14 O2 Del Method 09/15/22 06:14 Weight last 48 hrs Weight 65.771 kg Physical Exam Narrative: General exam is white female, complaining of back pain HEENT: Atraumatic normocephalic. Pupils equally round. Oropharynx demonstrates dry mucous membranes Neck is supple no lymphadenopathy or thyromegaly Cardiovascular tachycardic, possible systolic murmur. We will need to reevaluate when heart rate is lower. Lungs few bibasilar wheezes. No crackles. Abdomen is soft. Positive bowel sounds. Tenderness in the suprapubic area. exams deferred Extremities no cyanosis clubbing or edema, cap refill brisk Skin no rash Neuro no obvious focal deficits. Data 09/15/22 06:30 09/15/22 06:30 Other Labs: LFTs are normal. Lipase is normal Urinalysis demonstrates 80-100 whites, positive nitrates, 0-4 reds Influenza is negative Chest x-ray no infiltrate CT abdomen pelvis demonstrates no obvious obstruction, inflammatory stranding left greater than right kidneys with small amount of fluid in the perinephric space. No hydronephrosis is noted. Hepatomegaly, small esophageal hiatal hernia, prominent uterus likely physiologic, and chronic compression fractures also incidental findings. EKG demonstrates sinus tachycardia, normal axis, nonspecific ST-T wave changes A&P Assessment and plan (1) Pyelonephritis: Patient presents with pyelonephritis Urine and blood cultures have been obtained Continue Rocephin 1 g IV every 12 hours Treat nausea with Zofran Tylenol/ibuprofen for pain. Morphine for breakthrough pain. Clear liquids No evidence of obstruction seen on CT scan (2) Tobacco dependency: Encourage cessation. Offered nicotine patch which she refused at this time. (3) Hyperglycemia: Check hemoglobin A1c Plan GI prophylaxis with Pepcid Full code Lovenox for DVT prophylaxis Attestations Medical Necessity Statement*: Will need less than 2 midnight stay for evaluation and treatment of nonobstructive pyelonephritis. Coding Level of Care Code Acute Beehive Kiln Charcoal Burner for Adriana Villafuerte Diagnoses Pyelonephritis N12 Tobacco dependency F17.200 Hyperglycemia R73.9
[2022-09-15] MEDS: lidocaine 1% 5 ML in potassium chloride premix 100 ML 25 ML IV (11:25)
[2022-09-15 11:39] LABS: Estmated Average Glucose 111; Hemoglobin A1C 5.5 % (4.0-6.0)
[2022-09-15] MEDS: diphenhydrAMINE 50 mg/mL SDV 1mL IVP (11:42)
[2022-09-15] MEDS: sodium chloride 0.9% 1,000 ML 125 ML IV ×3 (12:03→17:09)
--- NOTE | 2022-09-15 12:17 | PC.NURSE ---
Pt had a possible reaction to morphine, she got hot and sweaty and was vomiting. Dr. Rivera was notified.
[2022-09-15] MEDS: famotidine 20 mg/2 mL INJ IVP ×2 (13:08→23:17)
[2022-09-15] MEDS: enoxaparin 40 mg/0.4 mL Syringe SUBCUT (13:08)
[2022-09-15] MEDS: ibuprofen 200 mg Tablet 400 MG PO (15:32)
[2022-09-15] MEDS: HYDROmorphone 1 mg/mL INJ 1 mL 0.2 MG IVP (23:17)
[2022-09-16] VITALS (8 sets, daily range): BP systolic 97–116; BP diastolic 52–76; PULSE 116–128; RESP 14–24; TEMP 37.3–38.3; O2SAT 93–97
[2022-09-16] MEDS: sodium chloride 0.9% 1,000 ML 125 ML IV ×3 (00:21→19:44)
[2022-09-16] MEDS: temazepam 15 mg Capsule PO ×2 (01:26)
[2022-09-16 01:52] LABS: Hematocrit 37.9 % (37.0-47.0); Hemoglobin 12.3 g/dL (11.5-15.3); Mean Corpuscular HGB Conc 32.5 g/dL (30.0-36.0); Mean Corpuscular Hemoglobin 29.7 pg (28.0-34.0); Mean Corpuscular Volume 91.5 fl (81-99); Mean Platelet Volume 11.2 fL (7.4-10.4); Platelet Count 147 10^3/cmm (130-400); Red Blood Count 4.14 10^6/uL (4.1-5.3); Red Cell Distribution Width 12.9 % (12.1-15.1); White Blood Count 17.8 10^3/uL (4.0-10.0)
[2022-09-16 02:21] LABS: Alanine Aminotransferase 9 U/L (0-33); Albumin Level 2.7 g/dL (3.5-5.2); Alkaline Phosphatase 111 U/L (35-105); Anion Gap 14.4 (5-19); Aspartate Amino Transferase 14 U/L (0-32); Blood Urea Nitrogen 13 mg/dL (6-20); Calcium 7.3 mg/dL (8.5-10.5); Carbon Dioxide 19 mmol/L (22-29); Chloride 104 mmol/L (98-107); Globulin 2.5 g/dL (1.3-4.6); Glomerular Filtration Rate 62.1 mL/min (90-130); Glucose 142 mg/dL (65-115); Osmolality Calculated 281 mOsm/kg (285-295); Potassium 3.4 mmol/L (3.5-5.1); Sodium 134 mmol/L (136-145); Total Bilirubin 0.4 mg/dL (0.15-1.2); Total Protein 5.2 g/dL (6.6-8.7)
[2022-09-16 02:53] LABS: Absolute Segmented Neutrophil 14.1 10/cmm (1.6-7.1); Band Neutrophils Absolute 2.7 10^3/cmm (0.0-1.2); Eosinophils 0 %; Lymphocytes 3 %; Lymphocytes Absolute 0.5 10^3/cmm (1.2-3.4); Monocytes Absolute 0.5 10^3/cmm (0.1-0.6); Segmented Neutrophils 79 %; Total Cells Counted 100 (0-100)
[2022-09-16 02:54] LABS: Absolute Neutrophil 16.7 10^3/cmm (1.4-6.5); Platelet Estimate Normal (Normal)
[2022-09-16] MEDS: ibuprofen 200 mg Tablet 400 MG PO (03:31)
[2022-09-16] MEDS: ondansetron 2 mg/ML SDV 2 mL 4 MG IVP ×2 (05:00→12:06)
--- NOTE | 2022-09-16 08:34 | PM.PN ---
Subjective Subjective: Molly reports she is doing quite a bit of pain. She was in some temperatures last night. Heart rate is still elevated. Medications: Reviewed: Yes Vitals/I&O/Wt Last Vital Signs Temp 99.8 F H 09/16/22 04:00 Pulse 128 H 09/16/22 04:00 Resp 18 09/16/22 04:00 BP 103/70 09/16/22 04:00 Pulse Ox 96 09/16/22 04:00 O2 Del Method 09/16/22 04:00 09/15/22 09/16/22 09/16/22 22:59 06:59 14:59 Intake Total 2145 / 4195 900 / 5095 Output Total 0 / 0 Balance 2145 / 4195 900 / 5095 Weight last 48 hrs Weight 65.771 kg Weight 65.771 kg Physical Exam Narrative: General exam is white female, still complaining of significant pain Neck is supple no lymphadenopathy or thyromegaly Cardiovascular tachycardic, I do not hear a murmur today. She is still tachycardic. Lungs clear Abdomen is soft. Positive bowel sounds. Tenderness in the suprapubic area. exams deferred Extremities no cyanosis clubbing or edema, cap refill brisk Skin no rash Data 09/16/22 01:15 09/16/22 01:15 Micro: Microbiology 09/15/22 09:50 Blood Culture - Preliminary Blood SPECIMEN COLLECTED 09/15/22 09:45 Blood Culture - Preliminary Blood SPECIMEN COLLECTED A&P Assessment and plan (1) Pyelonephritis: Patient presents with pyelonephritis Urine and blood cultures have been obtained Continue Rocephin 1 g IV every 12 hours Patient still nauseated. Continue Zofran Discontinue ibuprofen secondary to slight increase in creatinine. Morphine has now been changed to Dilaudid secondary to nausea. Clear liquids as tolerated No evidence of obstruction seen on CT scan (2) Tobacco dependency: Encourage cessation. Offered nicotine patch which she refused at this time. (3) Hyperglycemia: Hemoglobin A1c was checked and not elevated Plan GI prophylaxis with Pepcid Full code Lovenox for DVT prophylaxis Attestations Medical Necessity Statement*: Needs continued hospitalization secondary to pyelonephritis, in this patient with abnormal vital signs, elevated temperature, persistent pain. Coding Level of Care Code Acute Sports Book Board Attendant for [facility] Diagnoses Pyelonephritis N12 Tobacco dependency F17.200 Hyperglycemia R73.9
[2022-09-16] MEDS: HYDROmorphone 1 mg/mL INJ 1 mL 0.5 MG IVP ×4 (08:41→23:59)
[2022-09-16] MEDS: potassium chloride ER 20 mEq Tablet 40 MEQ PO (08:42)
[2022-09-16] MEDS: cefTRIAXone 1,000 MG in sodium chloride 0.9% (plus) 50 ML 100 MG IV (08:42)
[2022-09-16 10:34] LABS: Acinetobacter baumannii Not Detected (NOT DETECT); Bacteroides fragilis Not Detected (NOT DETECT); CTX-M Detected (NOT DETECT); Citrobacter Not Detected (NOT DETECT); Cronobacter sakazakii Not Detected (NOT DETECT); Enterobacter cloacae complex Not Detected (NOT DETECT); Enterobacter non cloacae Not Detected (NOT DETECT); Fusobacterium necrophorum Not Detected (NOT DETECT); Fusobacterium nucleatum Not Detected (NOT DETECT); Haemophilus influenzae Not Detected (NOT DETECT); IMP Resistance Gene Not Detected (NOT DETECT); KPC Resistance Gene Not Detected (NOT DETECT); Klebsiella pneumoniae group Not Detected (NOT DETECT); Morganella morganii Not Detected (NOT DETECT); NDM Resistance Gene Not Detected (NOT DETECT); Neisseria meningitidis Not Detected (NOT DETECT); OXA Resistance Gene Not Detected (NOT DETECT); Pan Candida Not Detected (NOT DETECT); Pan Gram-Positive Not Detected (NOT DETECT); Proteus mirabilis Not Detected (NOT DETECT); Pseudomonas aeruginosa Not Detected (NOT DETECT); Salmonella Not Detected (NOT DETECT); Serratia Not Detected (NOT DETECT); Serratia marcescens Not Detected (NOT DETECT); Stenotrophomonas maltophilia Not Detected (NOT DETECT); VIM Resistance Gene Not Detected (NOT DETECT)
[2022-09-16] MEDS: enoxaparin 40 mg/0.4 mL Syringe SUBCUT (12:53)
[2022-09-16] MEDS: famotidine 20 mg/2 mL INJ IVP (12:53)
[2022-09-16] MEDS: metoclopramide 5 mg/mL SDV 2 mL 10 MG IVP ×2 (13:22→23:57)
[2022-09-16] MEDS: acetaminophen 325 mg Tablet 650 MG PO ×2 (13:22→19:43)
[2022-09-16] MEDS: meropenem 1,000 MG in sodium chloride 0.9% (plus) 50 ML 100 MG IV ×2 (13:22→20:59)
[2022-09-17] VITALS (9 sets, daily range): BP systolic 108–138; BP diastolic 65–85; PULSE 95–126; RESP 16–22; TEMP 37.2–37.7; O2SAT 90–97
[2022-09-17] MEDS: famotidine 20 mg/2 mL INJ IVP ×2 (00:40→13:19)
[2022-09-17] MEDS: acetaminophen 325 mg Tablet 650 MG PO ×2 (01:37→19:24)
[2022-09-17] MEDS: ondansetron 2 mg/ML SDV 2 mL 4 MG IVP ×3 (01:37→19:32)
[2022-09-17 02:04] LABS: Basophils % 0.3 %; Eosinophils % 0.1 %; Hematocrit 40.8 % (37.0-47.0); Hemoglobin 13.8 g/dL (11.5-15.3); Lymphocytes # 0.5 10^3/uL (0.8-4.8); Lymphocytes % 3.5 %; Mean Corpuscular HGB Conc 33.8 g/dL (30.0-36.0); Mean Corpuscular Volume 88.7 fl (81-99); Mean Platelet Volume 11.6 fL (7.4-10.4); Monocytes # 0.5 10^3/uL (0.2-0.9); Monocytes % 3.5 %; Neutrophils # 13.75 10^3/uL (1.8-7.7); Neutrophils % 91.6 %; Nucleated Red Blood Cells % 0 %; Platelet Count 140 10^3/cmm (130-400); Red Cell Distribution Width 13.2 % (12.1-15.1)
[2022-09-17 02:34] LABS: Alanine Aminotransferase 9 U/L (0-33); Albumin Level 2.7 g/dL (3.5-5.2); Alkaline Phosphatase 161 U/L (35-105); Anion Gap 14.7 (5-19); Aspartate Amino Transferase 13 U/L (0-32); Blood Urea Nitrogen 10 mg/dL (6-20); Calcium 7.7 mg/dL (8.5-10.5); Carbon Dioxide 19 mmol/L (22-29); Chloride 104 mmol/L (98-107); Globulin 3.3 g/dL (1.3-4.6); Glomerular Filtration Rate 70.1 mL/min (90-130); Glucose 125 mg/dL (65-115); Osmolality Calculated 279 mOsm/kg (285-295); Potassium 3.7 mmol/L (3.5-5.1); Sodium 134 mmol/L (136-145); Total Bilirubin 0.7 mg/dL (0.15-1.2)
[2022-09-17] MEDS: sodium chloride 0.9% 1,000 ML 125 ML IV ×3 (04:16→20:22)
[2022-09-17] MEDS: meropenem 1,000 MG in sodium chloride 0.9% (plus) 50 ML 100 MG IV ×3 (04:16→20:21)
[2022-09-17] MEDS: metoclopramide 5 mg/mL SDV 2 mL 10 MG IVP ×3 (05:44→23:29)
[2022-09-17] MEDS: HYDROmorphone 1 mg/mL INJ 1 mL 0.5 MG IVP ×3 (05:52→19:32)
--- NOTE | 2022-09-17 08:56 | PM.PN ---
Subjective Subjective: Reports she still has back pain. Still has nausea. Tolerating a little bit of clear liquids. Zofran. Medications: Reviewed: Yes Vitals/I&O/Wt Last Vital Signs Temp 99.2 F 09/17/22 07:13 Pulse 126 H 09/17/22 07:13 Resp 22 H 09/17/22 07:13 BP 138/81 09/17/22 07:13 Pulse Ox 97 09/17/22 07:13 O2 Del Method 09/17/22 07:13 09/16/22 09/17/22 09/17/22 22:59 06:59 14:59 Intake Total 1850 / 3550 1050 / 4600 Balance 1850 / 3550 1050 / 4600 Weight last 48 hrs Weight 65.771 kg Physical Exam Narrative: General exam is white female, no distress but still having pain Neck is supple no lymphadenopathy or thyromegaly Cardiovascular tachycardic, regular, no murmur Lungs clear Abdomen is soft. Positive bowel sounds. Tenderness in the suprapubic area. exams deferred Extremities no cyanosis clubbing or edema, cap refill brisk Skin no rash Data 09/17/22 01:27 09/17/22 01:27 Micro: Microbiology 09/17/22 01:27 Blood Culture - Preliminary Blood SPECIMEN COLLECTED 09/17/22 01:25 Blood Culture - Preliminary Blood SPECIMEN COLLECTED 09/15/22 09:45 Blood Culture - Preliminary Blood Escherichia coli 09/15/22 09:50 Blood Culture - Preliminary Blood Escherichia coli 09/15/22 07:33 Urine Culture - Preliminary Urine,Clean Catch Gram Negative Rods A&P Assessment and plan (1) Pyelonephritis: Patient presents with pyelonephritis Urine and blood cultures have been obtained Initially was placed on Rocephin. PCR based on E. coli growing growing in blood is concern for ESBL so switched to meropenem yesterday. Urine cultures are growing gram-negative organism as well. Continue Zofran and Reglan for nausea Discontinue ibuprofen secondary to slight increase in creatinine. Morphine has now been changed to Dilaudid secondary to nausea. Clear liquids as tolerated No evidence of obstruction seen on CT scan White blood cell count is decreasing If organism ends up being ESBL, will require IV antibiotics for 2 weeks Repeat blood cultures today (2) Tobacco dependency: Encourage cessation. Offered nicotine patch which she refused at this time. (3) Hyperglycemia: Hemoglobin A1c was checked and not elevated Plan GI prophylaxis with Pepcid Full code Lovenox for DVT prophylaxis Attestations Medical Necessity Statement*: Needs continued hospitalization for IV antibiotics secondary to pyelonephritis with bacteremia. Coding Level of Care Code Acute Collections Professional for Chg Fwd Diagnoses Pyelonephritis N12 Tobacco dependency F17.200 Hyperglycemia R73.9
[2022-09-17] MEDS: enoxaparin 40 mg/0.4 mL Syringe SUBCUT (13:02)
[2022-09-18] VITALS (8 sets, daily range): BP systolic 120–149; BP diastolic 69–97; PULSE 90–121; RESP 16–24; TEMP 36.6–39.5; O2SAT 88–98
[2022-09-18] MEDS: famotidine 20 mg/2 mL INJ IVP ×2 (01:16→14:13)
[2022-09-18] MEDS: ondansetron 2 mg/ML SDV 2 mL 4 MG IVP ×2 (01:18→14:21)
[2022-09-18] MEDS: HYDROmorphone 1 mg/mL INJ 1 mL 0.5 MG IVP ×3 (02:47→16:55)
[2022-09-18] MEDS: meropenem 1,000 MG in sodium chloride 0.9% (plus) 50 ML 100 MG IV ×2 (05:48→20:21)
[2022-09-18] MEDS: sodium chloride 0.9% 1,000 ML 125 ML IV ×3 (05:48→22:45)
[2022-09-18] MEDS: metoclopramide 5 mg/mL SDV 2 mL 10 MG IVP ×2 (07:26→19:16)
[2022-09-18] MEDS: acetaminophen 325 mg Tablet 650 MG PO ×2 (08:17→20:21)
[2022-09-18 09:16] LABS: Basophils % 0.1 %; Eosinophils % 0.1 %; Hematocrit 35.6 % (37.0-47.0); Hemoglobin 12.3 g/dL (11.5-15.3); Lymphocytes # 0.7 10^3/uL (0.8-4.8); Lymphocytes % 8.8 %; Mean Corpuscular HGB Conc 34.6 g/dL (30.0-36.0); Mean Corpuscular Volume 86.8 fl (81-99); Mean Platelet Volume 11.3 fL (7.4-10.4); Monocytes # 0.5 10^3/uL (0.2-0.9); Monocytes % 6.4 %; Neutrophils # 6.93 10^3/uL (1.8-7.7); Nucleated Red Blood Cells % 0 %; Platelet Count 123 10^3/cmm (130-400); Red Cell Distribution Width 13.2 % (12.1-15.1); White Blood Count 8.3 10^3/uL (4.0-10.0)
[2022-09-18 09:36] LABS: Anion Gap 12.9 (5-19); Blood Urea Nitrogen 5 mg/dL (6-20); Calcium 7.6 mg/dL (8.5-10.5); Carbon Dioxide 19 mmol/L (22-29); Chloride 102 mmol/L (98-107); Glomerular Filtration Rate 80.3 mL/min (90-130); Glucose 126 mg/dL (65-115); Osmolality Calculated 271 mOsm/kg (285-295); Sodium 131 mmol/L (136-145)
--- NOTE | 2022-09-18 09:40 | PM.PN ---
Subjective Subjective: Molly reports she feels little bit better today. She think she can go ahead and start a different diet. She is less nauseous. She is still hurting, just not quite as much. Medications: Reviewed: Yes Vitals/I&O/Wt Last Vital Signs Temp 103.1 F H 09/18/22 08:00 Pulse 118 H 09/18/22 08:00 Resp 17 09/18/22 04:00 BP 138/81 09/18/22 08:00 Pulse Ox 98 09/18/22 08:00 O2 Del Method 09/18/22 05:52 09/17/22 09/18/22 09/18/22 22:59 06:59 14:59 Intake Total 1530 / 3300 1300 / 4600 410 / 410 Output Total 300 / 300 Balance 1230 / 3000 1300 / 4300 410 / 410 Physical Exam Narrative: General exam is white female, no distress Neck is supple no lymphadenopathy or thyromegaly Cardiovascular tachycardic, regular, no murmur Lungs clear Abdomen is soft. Positive bowel sounds. Less tenderness Extremities no cyanosis clubbing or edema, cap refill brisk Skin no rash Data 09/18/22 09:04 09/18/22 09:04 Micro: Microbiology 09/17/22 01:27 Blood Culture - Preliminary Blood NEGATIVE TO DATE 09/17/22 01:25 Blood Culture - Preliminary Blood NEGATIVE TO DATE 09/15/22 07:33 Urine Culture - Final Urine,Clean Catch Escherichia coli esbl A&P Assessment and plan (1) Pyelonephritis: Patient presents with pyelonephritis Urine and blood cultures have been obtained Initially was placed on Rocephin. ESBL cultured so switched to meropenem September 17. Urine cultures grew out same organism Continue Zofran and Reglan for nausea Advance diet No evidence of obstruction seen on CT scan White blood cell count is decreasing Repeat blood cultures negative to date Reviewed sensitivity profiles. It appears her organism is sensitive to fluoroquinolones, and if she is able to tolerate these p.o. we will plan on a prolonged course of Levaquin at discharge (2) Tobacco dependency: Encourage cessation. Offered nicotine patch which she refused at this time. (3) Hyperglycemia: Hemoglobin A1c was checked and not elevated Plan GI prophylaxis with Pepcid Full code Lovenox for DVT prophylaxis Attestations Medical Necessity Statement*: Continued hospital stay for IV antibiotics with pyelonephritis and bacteremia. Coding Level of Care Code Acute Nursing Executive for Chg Fwd Diagnoses Pyelonephritis N12 Tobacco dependency F17.200 Hyperglycemia R73.9
[2022-09-18 09:44] LABS: Potassium 2.9 mmol/L (3.5-5.1)
[2022-09-18 10:17] LABS: Magnesium 1.9 mg/dL (1.7-2.3)
[2022-09-18] MEDS: lidocaine 1% 5 ML in potassium chloride premix 100 ML 25 ML IV (11:40)
[2022-09-18] MEDS: potassium chloride ER 20 mEq Tablet 40 MEQ PO (11:42)
[2022-09-18] MEDS: enoxaparin 40 mg/0.4 mL Syringe SUBCUT (13:16)
[2022-09-18] MEDS: meropenem 1,000 MG in sodium chloride 0.9% (plus) 50 ML 50 MG IV (14:13)
[2022-09-19] VITALS (12 sets, daily range): BP systolic 104–145; BP diastolic 64–81; PULSE 78–124; RESP 15–20; TEMP 36.6–39.4; O2SAT 90–97
[2022-09-19] MEDS: ondansetron 2 mg/ML SDV 2 mL 4 MG IVP ×3 (00:52→21:21)
[2022-09-19] MEDS: famotidine 20 mg/2 mL INJ IVP ×2 (00:53→14:20)
[2022-09-19] MEDS: HYDROmorphone 1 mg/mL INJ 1 mL 0.5 MG IVP ×5 (01:03→21:21)
[2022-09-19] MEDS: metoclopramide 5 mg/mL SDV 2 mL 10 MG IVP ×2 (03:08→19:18)
[2022-09-19] MEDS: meropenem 1,000 MG in sodium chloride 0.9% (plus) 50 ML 100 MG IV ×2 (04:38→21:22)
[2022-09-19] MEDS: acetaminophen 325 mg Tablet 650 MG PO ×3 (04:39→21:32)
[2022-09-19 05:37] LABS: Basophils % 0.3 %; Eosinophils % 0.4 %; Hematocrit 32.6 % (37.0-47.0); Hemoglobin 11.2 g/dL (11.5-15.3); Lymphocytes # 0.8 10^3/uL (0.8-4.8); Lymphocytes % 11.2 %; Mean Corpuscular HGB Conc 34.4 g/dL (30.0-36.0); Mean Corpuscular Hemoglobin 29.3 pg (28.0-34.0); Mean Corpuscular Volume 85.3 fl (81-99); Monocytes # 0.9 10^3/uL (0.2-0.9); Monocytes % 12.7 %; Neutrophils # 5.44 10^3/uL (1.8-7.7); Neutrophils % 74.6 %; Nucleated Red Blood Cells % 0 %; Platelet Count 144 10^3/cmm (130-400); Red Blood Count 3.82 10^6/uL (4.1-5.3); Red Cell Distribution Width 13.3 % (12.1-15.1); White Blood Count 7.3 10^3/uL (4.0-10.0)
[2022-09-19 05:54] LABS: Alanine Aminotransferase 13 U/L (0-33); Albumin Level 2.2 g/dL (3.5-5.2); Alkaline Phosphatase 72 U/L (35-105); Aspartate Amino Transferase 23 U/L (0-32); Blood Urea Nitrogen 6 mg/dL (6-20); Calcium 7.5 mg/dL (8.5-10.5); Carbon Dioxide 20 mmol/L (22-29); Chloride 102 mmol/L (98-107); Globulin 2.9 g/dL (1.3-4.6); Glomerular Filtration Rate 80.3 mL/min (90-130); Glucose 159 mg/dL (65-115); Osmolality Calculated 273 mOsm/kg (285-295); Sodium 131 mmol/L (136-145); Total Bilirubin 0.4 mg/dL (0.15-1.2); Total Protein 5.1 g/dL (6.6-8.7)
--- NOTE | 2022-09-19 07:43 | CT_ITS ---
WS: [id number] CT ABDOMEN PELVIS TECHNIQUE: Contrast-enhanced CT of the abdomen and pelvis with coronal and sagittal reformatted image s. CLINICAL INFORMATION: persistent fevers, admitted with pyelo 09/15 COMPARISON: CT September 15, 2022 DLP: 452.[address] scans at [facility] use at least one of these dose optimization techniques: automated e xposure control; mA and/or kV adjustment per patient size (includes targeted exams where dose is matc hed to clinical indication); or iterative reconstruction. FINDINGS: Enlarged kidneys bilaterally with striated nephrograms consistent with bilateral pyelonephritis. No s ignificant hydronephrosis. Inflammatory stranding and edema about the kidneys has improved compared t o September 07, 2022. Retroperitoneal fluid has improved. Small amount of free fluid in the pelvis. Ur ine distended bladder. No obstructing renal or ureteral calculi. Heterogeneous uterine enhancement li zeny physiologic. Multicystic ovaries bilaterally. Small RIGHT and tiny LEFT pleural effusions with compressive atelectasis RIGHT greater than LEFT lowe r lobes. Subsegmental atelectasis in the RIGHT middle lobe and lingula. Pleural effusions are new com pared to previous. No other significant changes compared to previous.Hepatomegaly. Splenic granulomas. Adrenal glands a re normal. Chronic compression fractures L1 and L2 unchanged. Tiny fat-containing umbilical hernia. CT/CT abdomen pelvis w con* [id number] IMPRESSION: 1. Evidence of bilateral pyelonephritis with improved inflammatory stranding a nd edema compared to previous. Improved retroperitoneal fluid. 2. Bilateral renal enlargement. No hydronephrosis. 3. New small RIGHT and tiny LEFT pleural effusions with compressive atelectasi s in the lung bases. Subsegmental atelectasis in RIGHT middle lobe and lingula. 4. Small amount of free fluid in the pelvis. Urine distended bladder. 5. No other significant changes compared to previous.
--- NOTE | 2022-09-19 08:53 | P.PN_ITS ---
Subjective Subjective: Molly reports she feels a lot better. Back and abdomen hurt less. She is baffled as she is still running some fevers. She is now able to eat and has much less nausea. Medications: Reviewed: Yes Vitals/I&O/Wt Last Vital Signs Temp 98.1 F 09/19/22 07:47 Pulse 96 09/19/22 07:47 Resp 15 09/19/22 07:47 BP 117/74 09/19/22 07:47 Pulse Ox 90 09/19/22 07:47 O2 Del Method 09/19/22 07:47 09/18/22 09/19/22 09/19/22 22:59 06:59 14:59 Intake Total 1505 / 3086.25 1500 / 4586.25 Balance 1505 / 3086.25 1500 / 4586.25 Physical Exam Narrative: General exam is white female, no distress Neck is supple no lymphadenopathy or thyromegaly Cardiovascular regular rate and rhythm, no murmur Lungs clear Abdomen is soft. Positive bowel sounds. Less tenderness Extremities no cyanosis clubbing or edema, cap refill brisk Skin no rash Data 09/19/22 05:18 09/19/22 05:18 Micro: Microbiology 09/15/22 09:50 Blood Culture - Final Blood Escherichia coli esbl A&P Assessment and plan (1) Pyelonephritis: Patient presents with pyelonephritis Urine and blood cultures have been obtained Initially was placed on Rocephin. ESBL cultured so switched to meropenem September 17. Urine cultures grew out same organism Continue Zofran and Reglan for nausea No evidence of obstruction or abscess seen on initial CT scan White blood cell count now normal Patient still with significantly high fevers. We will repeat CT scan to look for abscess. Repeat blood cultures negative to date Reviewed sensitivity profiles. It appears her organism is sensitive to fluoroquinolones, and if she is able to tolerate these p.o. we will plan on a prolonged course of Levaquin at discharge. Plan may change if abscess is noted on CT (2) Tobacco dependency: Encourage cessation. Offered nicotine patch which she refused at this time. (3) Hyperglycemia: Hemoglobin A1c was checked and not elevated Plan GI prophylaxis with Pepcid Full code Lovenox for DVT prophylaxis Attestations Medical Necessity Statement*: Needs continued hospitalization for IV antibiotics secondary to persistent fevers, with need to evaluate if renal abscess has developed. Coding Level of Care Code Acute Administrative Project Coordinator for [facility] Diagnoses Pyelonephritis N12 Tobacco dependency F17.200 Hyperglycemia R73.9
[2022-09-19] MEDS: iohexol 350 mg/mL 500 mL Btl (per mL) IV (09:06)
[2022-09-19] MEDS: potassium chloride ER 20 mEq Tablet 40 MEQ PO ×2 (12:18→14:20)
--- NOTE | 2022-09-19 14:09 | PC.NURSE ---
5 ml post void residual shown on bladder scan
[2022-09-19] MEDS: LORazepam 0.5 mg Tablet PO ×2 (14:20→19:40)
[2022-09-19] MEDS: enoxaparin 40 mg/0.4 mL Syringe SUBCUT (14:20)
[2022-09-19] MEDS: meropenem 1,000 MG in sodium chloride 0.9% (plus) 50 ML 50 MG IV (14:21)
[2022-09-19] MEDS: sodium chloride 0.9% 1,000 ML 30 ML IV (14:27)
[2022-09-19 14:33] LABS: Influenza A by IFA negative (Negative); Influenza B by IFA negative (Negative)
[2022-09-19 16:20] LABS: Adenovirus Not Detected (NOT DETECT); Chlamydia Pneumoniae Not Detected (NOT DETECT); Coronavirus 229E,HKU1,NL63,OC4 Not Detected (NOT DETECT); Human Metapneumovirus Not Detected (NOT DETECT); Human Rhinovirus/Enterovirus Not Detected (NOT DETECT); Influenza A Not Detected (NOT DETECT); Influenza A H1 Not Detected (NOT DETECT); Influenza A H1-2009 Not Detected (NOT DETECT); Influenza A H3 Not Detected (NOT DETECT); Influenza B Not Detected (NOT DETECT); Mycoplasma Pneumoniae Not Detected (NOT DETECT); Parainfluenza Virus Type 1 Not Detected (NOT DETECT); Parainfluenza Virus Type 2 Not Detected (NOT DETECT); Parainfluenza Virus Type 3 Not Detected (NOT DETECT); Parainfluenza Virus Type 4 Not Detected (NOT DETECT); Respiratory Syncytial Virus A Not Detected (NOT DETECT); Respiratory Syncytial Virus B Not Detected (NOT DETECT); SARS-COV-2 Not Detected (NOT DETECT)
[2022-09-20] VITALS (10 sets, daily range): BP systolic 105–142; BP diastolic 66–84; PULSE 92–113; RESP 16–19; TEMP 36.7–38.2; O2SAT 92–96
[2022-09-20] MEDS: ondansetron 2 mg/ML SDV 2 mL 4 MG IVP ×3 (01:23→22:20)
[2022-09-20] MEDS: famotidine 20 mg/2 mL INJ IVP ×2 (01:23→14:46)
--- NOTE | 2022-09-20 01:25 | PC.NURSE ---
Patient offered pain medication at this time and refused.
[2022-09-20] MEDS: metoclopramide 5 mg/mL SDV 2 mL 10 MG IVP ×3 (02:20→17:10)
--- NOTE | 2022-09-20 02:26 | PC.NURSE ---
Patient states at this time when can I get my pain medicine. PRN Dilaudid given. Patient dry heaves. Patient states Zogeena does not work for her. PRN Reglan given.
[2022-09-20] MEDS: HYDROmorphone 1 mg/mL INJ 1 mL 0.5 MG IVP ×4 (02:27→22:25)
[2022-09-20] MEDS: meropenem 1,000 MG in sodium chloride 0.9% (plus) 50 ML 100 MG IV ×3 (04:09→20:30)
--- NOTE | 2022-09-20 04:16 | PC.NURSE ---
Addendum entered by Tamiko Garza RN 09/20/22 04:37: Phenergan x1 ordered. Original Note: Patient currently crying and having dry heaves. Earlier patient had emesis. Patient stated Zofran does not help and that Reglan helped for about an hour. Patient is asking for something else for nausea. Dr. King notified.
[2022-09-20] MEDS: LORazepam 0.5 mg Tablet PO ×2 (04:41→22:25)
[2022-09-20] MEDS: promethazine 25 mg/mL SDV 1 mL 12.5 MG IM (04:41)
[2022-09-20 05:24] LABS: Basophils % 0.4 %; Eosinophils # 0.1 10^3/uL (0.0-0.8); Eosinophils % 1.2 %; Hematocrit 37.2 % (37.0-47.0); Hemoglobin 12.6 g/dL (11.5-15.3); Lymphocytes # 1.2 10^3/uL (0.8-4.8); Lymphocytes % 14.3 %; Mean Corpuscular HGB Conc 33.9 g/dL (30.0-36.0); Mean Corpuscular Hemoglobin 29.6 pg (28.0-34.0); Mean Corpuscular Volume 87.5 fl (81-99); Mean Platelet Volume 11.1 fL (7.4-10.4); Monocytes # 1.1 10^3/uL (0.2-0.9); Monocytes % 12.9 %; Neutrophils # 5.98 10^3/uL (1.8-7.7); Neutrophils % 69.9 %; Nucleated Red Blood Cells % 0 %; Platelet Count 165 10^3/cmm (130-400); Red Blood Count 4.25 10^6/uL (4.1-5.3); Red Cell Distribution Width 13.7 % (12.1-15.1); White Blood Count 8.5 10^3/uL (4.0-10.0)
[2022-09-20 05:47] LABS: Anion Gap 11.4 (5-19); Blood Urea Nitrogen 7 mg/dL (6-20); Calcium 7.9 mg/dL (8.5-10.5); Carbon Dioxide 23 mmol/L (22-29); Chloride 100 mmol/L (98-107); Glomerular Filtration Rate 93.6 mL/min (90-130); Glucose 109 mg/dL (65-115); Magnesium 1.8 mg/dL (1.7-2.3); Osmolality Calculated 271 mOsm/kg (285-295); Potassium 3.4 mmol/L (3.5-5.1); Sodium 131 mmol/L (136-145)
[2022-09-20] MEDS: acetaminophen 325 mg Tablet 650 MG PO (10:21)
[2022-09-20] MEDS: enoxaparin 40 mg/0.4 mL Syringe SUBCUT (14:46)
--- NOTE | 2022-09-20 15:23 | PM.PN ---
Subjective Subjective: Patient was seen this morning, she continues to complain of fatigue, malaise, she continues to have low-grade fevers overnight, no nausea, no vomiting, continues to have a poor appetite Vitals/I&O/Wt Last Vital Signs Temp 98.7 F 09/20/22 12:00 Pulse 103 H 09/20/22 12:00 Resp 18 09/20/22 14:58 BP 105/66 09/20/22 12:00 Pulse Ox 95 09/20/22 14:58 O2 Del Method Nasal Cannula 09/20/22 12:00 09/20/22 09/20/22 09/20/22 06:59 14:59 22:59 Intake Total 50 / 790 Balance 50 / 790 Physical Exam Const: COMMON NORMALS: no acute distress and patient oriented x3 Resp: COMMON NORMALS: normal respiratory effort, No retractions, No use of accessory muscles and clear to auscultation bilaterally AUSCULTATION: clear to auscultation bilaterally Cardio: COMMON NORMALS: regular rate, regular rhythm, S1 normal heart sound present and S2 normal heart sound present RATE: regular rate RHYTHM: regular rhythm HEART SOUNDS: S1 normal heart sound present and S2 normal heart sound present GI: COMMON NORMALS: Normal to inspection, nondistended, normoactive bowel sounds present and non-tender Extremity: COMMON NORMALS: no pedal edema Neuro: COMMON NORMALS: patient oriented x3 Psych: COMMON NORMALS: mental status grossly normal Data 09/20/22 05:05 09/20/22 05:16 A&P Assessment and plan (1) Pyelonephritis: Bilateral pyelonephritis Repeat abdominal CT scan yesterday showed 1.? Evidence of bilateral pyelonephritis with improved inflammatory stranding and edema compared to previous. Improved retroperitoneal fluid. 2.? Bilateral renal enlargement. No hydronephrosis. 3.? New small RIGHT and tiny LEFT pleural effusions with compressive atelectasis in the lung bases. Subsegmental atelectasis in RIGHT middle lobe and lingula. 4.? Small amount of free fluid in the pelvis. Urine distended bladder. 5.? No other significant changes compared to previous. Urine and blood cultures have been obtained Initially was placed on Rocephin. ESBL cultured so switched to meropenem September 17. Urine cultures grew out same organism Continue Zofran and Reglan for nausea No evidence of obstruction or abscess seen on initial CT scan and follow-up CT White blood cell count now normal Repeat blood cultures negative to date Reviewed sensitivity profiles. It appears her organism is sensitive to fluoroquinolones, and if she is able to tolerate these p.o. we will plan on a prolonged course of Levaquin at discharge. Continue to monitor for the next 3 to 4 hours we will consider discussing with urology based on clinical progress (2) Tobacco dependency: Encourage cessation. Offered nicotine patch which she refused at this time. (3) Hyperglycemia: Hemoglobin A1c was checked and not elevated Plan GI prophylaxis with Pepcid Full code Lovenox for DVT prophylaxis Attestations Medical Necessity Statement*: Patient requires hospitalization for bilateral pyelonephritis Coding Level of Care Code Acute Street Cleaner for [facility] Diagnoses Pyelonephritis N12 Tobacco dependency F17.200 Hyperglycemia R73.9
[2022-09-20] MEDS: sodium chloride 0.9% 1,000 ML 30 ML IV (18:32)
[2022-09-20] MEDS: lanolin oint 7 gm 1 APPLIC TOPICAL (22:30)
[2022-09-21] VITALS (9 sets, daily range): BP systolic 108–134; BP diastolic 65–83; PULSE 90–104; RESP 14–19; TEMP 36.4–37.2; O2SAT 94–99
[2022-09-21] MEDS: famotidine 20 mg/2 mL INJ IVP ×2 (00:13→13:41)
[2022-09-21] MEDS: metoclopramide 5 mg/mL SDV 2 mL 10 MG IVP ×2 (03:15→12:11)
[2022-09-21] MEDS: meropenem 1,000 MG in sodium chloride 0.9% (plus) 50 ML 100 MG IV ×3 (04:17→20:52)
[2022-09-21 05:57] LABS: Blood Urea Nitrogen 8 mg/dL (6-20); C Reactive Protein 69.9 mg/L (0.0-4.9); Carbon Dioxide 19 mmol/L (22-29); Chloride 97 mmol/L (98-107); Glomerular Filtration Rate 111.9 mL/min (90-130); Glucose 116 mg/dL (65-115); Magnesium 1.9 mg/dL (1.7-2.3); Osmolality Calculated 259 mOsm/kg (285-295); Sodium 125 mmol/L (136-145)
[2022-09-21 05:58] LABS: Anion Gap 12.8 (5-19); Potassium 3.8 mmol/L (3.5-5.1)
[2022-09-21 06:02] LABS: Procalcitonin 1.13 ng/mL (0-0.5)
[2022-09-21 06:17] LABS: Acinetobacter baumannii Not Detected (NOT DETECT); Bacteroides fragilis Not Detected (NOT DETECT); CTX-M Detected (NOT DETECT); Citrobacter Not Detected (NOT DETECT); Cronobacter sakazakii Not Detected (NOT DETECT); Enterobacter cloacae complex Not Detected (NOT DETECT); Enterobacter non cloacae Not Detected (NOT DETECT); Fusobacterium necrophorum Not Detected (NOT DETECT); Fusobacterium nucleatum Not Detected (NOT DETECT); Haemophilus influenzae Not Detected (NOT DETECT); IMP Resistance Gene Not Detected (NOT DETECT); KPC Resistance Gene Not Detected (NOT DETECT); Klebsiella pneumoniae group Not Detected (NOT DETECT); Morganella morganii Not Detected (NOT DETECT); NDM Resistance Gene Not Detected (NOT DETECT); Neisseria meningitidis Not Detected (NOT DETECT); OXA Resistance Gene Not Detected (NOT DETECT); Pan Candida Not Detected (NOT DETECT); Pan Gram-Positive Detected (NOT DETECT); Proteus mirabilis Not Detected (NOT DETECT); Pseudomonas aeruginosa Not Detected (NOT DETECT); Salmonella Not Detected (NOT DETECT); Serratia Not Detected (NOT DETECT); Serratia marcescens Not Detected (NOT DETECT); Stenotrophomonas maltophilia Not Detected (NOT DETECT); VIM Resistance Gene Not Detected (NOT DETECT)
[2022-09-21 06:21] LABS: Basophils # 0.1 10^3/uL (0.0-0.1); Basophils % 0.8 %; Eosinophils # 0.1 10^3/uL (0.0-0.8); Eosinophils % 1.3 %; Hematocrit 34.9 % (37.0-47.0); Hemoglobin 12.2 g/dL (11.5-15.3); Lymphocytes # 2.2 10^3/uL (0.8-4.8); Lymphocytes % 19.3 %; Mean Corpuscular Hemoglobin 29.5 pg (28.0-34.0); Mean Corpuscular Volume 84.5 fl (81-99); Mean Platelet Volume 11.7 fL (7.4-10.4); Monocytes # 1.1 10^3/uL (0.2-0.9); Neutrophils # 7.32 10^3/uL (1.8-7.7); Neutrophils % 65.6 %; Nucleated Red Blood Cells % 0 %; Platelet Count 203 10^3/cmm (130-400); Red Blood Count 4.13 10^6/uL (4.1-5.3); Red Cell Distribution Width 13.5 % (12.1-15.1); White Blood Count 11.2 10^3/uL (4.0-10.0)
[2022-09-21 06:24] LABS: Slide Review Slide Review Perform
[2022-09-21] MEDS: LORazepam 0.5 mg Tablet PO ×3 (07:01→21:24)
[2022-09-21] MEDS: ondansetron 2 mg/ML SDV 2 mL 4 MG IVP ×2 (07:01→18:44)
--- NOTE | 2022-09-21 08:42 | USR_ITS ---
PROCEDURE INFORMATION: Exam: US Retroperitoneal; Complete; Kidneys and Bladder Exam date and time: 09/21/2022 2:38 PM Age: 37 years old Clinical indication: Condition or disease; Other: Pyelonephritis; Additional info: Bilateral pyelonephritis TECHNIQUE: Imaging protocol: Real-time ultrasound of the retroperitoneum with image documentation. Complete exam focused on the kidneys and bladder. COMPARISON: CT abdomen pelvis w con* [id number] 09/19/2022 8:56 AM FINDINGS: Right kidney: The right kidney measures 12.3 x 6.0 x 7.8 cm. Unremarkable. A brief color Doppler examination of the right kidney was performed showing normal color shifts. Left kidney: The left kidney measures 11.1 x 7.3 x 6.2 cm. Unremarkable. A brief color Doppler examination of the left kidney was performed showing normal color shifts. Urinary bladder: The urinary bladder is imaged in the sagittal and transverse planes, and is partially decompressed. The wall thickness appears unremarkable. Low level internal echoes. Bilateral ureteral jets are observed by color Doppler. US/US renal BI* [id number] IMPRESSION: No acute abnormality identified.
--- NOTE | 2022-09-21 08:42 | USCV_ITS ---
Molly Dixon Age: 37 Gender: F : 1985 Exam Date: 09/21/2022 14:03 Ordering Phys: Marcus Marcus MD Technologist: JOE [place] [facility] [place]: vegitations BP: 112 / 71 HR: 90 Rhythm: Sinus Technical Quality: Adequate MEASUREMENTS (Male / Female) Normal Values 2D ECHO LV Diastolic Diameter PLAX 5.2 cm 4.2 - 5.9 / 3.9 - 5.3 cm LV Systolic Diameter PLAX 3.1 cm IVS Diastolic Thickness 1.0 cm 0.6 - 1.0 / 0.6 - 0.9 cm IVS Systolic Thickness 1.2 cm LVPW Diastolic Thickness 0.9 cm 0.6 - 1.0 / 0.6 - 0.9 cm LVPW Systolic Thickness 1.3 cm LVOT Diameter 2.1 cm LV Ejection Fraction 2D Teich 69.9 % LV Ejection Fraction MOD 2C 66.4 % LV Ejection Fraction 2C AL 66.2 % LA Diameter 3.1 cm IVC Diameter 1.4 cm M-MODE Aortic Annulus Diameter 2.7 cm LA Ao Ratio MM 1.1 MV E Point Septal Separation 0.5 cm DOPPLER AV Peak Velocity 133.0 cm/s LVOT Peak Velocity 96.0 cm/s AV Area Cont Eq vti 2.5 cm squared AV Area Cont Eq pk 2.5 cm squared MV Area PHT 3.5 cm squared Mitral E to A Ratio 1.1 MV E' Velocity 79.0 cm/s TR Peak Velocity 229.3 cm/s TR Peak Gradient 21.0 mmHg TV Peak E Velocity 60.0 cm/s PV Peak Velocity 105.0 cm/s FINDINGS Left Ventricle Left ventricle is normal in size. LV systolic function is normal with EF of 55 to 60%. No regional wall motion abnormalities are seen. Right Ventricle Normal in size and function Right Atrium Normal in size Left Atrium Normal in size Mitral Valve Structurally normal mitral valve. Mild mitral regurgitation Aortic Valve Aortic valve is structurally normal. No significant stenosis or regurgitation Tricuspid Valve Grossly normal. Mild tricuspid regurgitation. Insufficient TR jet to calculate RVSP Pulmonic Valve Not well-visualized Pericardium Normal Aorta Normal in size IVC Appears to be normal CONCLUSIONS LV systolic function is normal with EF of 55 to 60%. Mild mitral regurgitation Mild tricuspid regurgitation No comparison studies are available Conrad Lane MD (Electronically Signed) Final Date: 21 September 2022 19:41 S
[2022-09-21] MEDS: HYDROmorphone 1 mg/mL INJ 1 mL 0.5 MG IVP ×2 (12:24→18:43)
--- NOTE | 2022-09-21 13:39 | PM.PN ---
Subjective Subjective: Overnight she had some low-grade fevers, but she is feeling well, her serum sodium is 125 but she is hydrating well, she really wants to go home today, as it is her 15-year-old birthday alliance party, however her repeat blood cultures so far have remained positive Vitals/I&O/Wt Last Vital Signs Temp 97.6 F 09/21/22 12:00 Pulse 91 09/21/22 12:00 Resp 14 09/21/22 12:24 BP 112/71 09/21/22 12:00 Pulse Ox 95 09/21/22 12:24 O2 Del Method 09/21/22 12:00 09/20/22 09/21/22 09/21/22 22:59 06:59 14:59 Intake Total 1422.5 / 1782.5 50 / 1832.5 360 / 360 Balance 1422.5 / 1782.5 50 / 1832.5 360 / 360 Physical Exam Const: COMMON NORMALS: no acute distress and patient oriented x3 Resp: COMMON NORMALS: normal respiratory effort, No retractions, No use of accessory muscles and clear to auscultation bilaterally AUSCULTATION: clear to auscultation bilaterally Cardio: COMMON NORMALS: regular rate, regular rhythm, S1 normal heart sound present and S2 normal heart sound present RATE: regular rate RHYTHM: regular rhythm HEART SOUNDS: S1 normal heart sound present and S2 normal heart sound present GI: COMMON NORMALS: Normal to inspection, nondistended, normoactive bowel sounds present Extremity: COMMON NORMALS: no pedal edema Neuro: COMMON NORMALS: patient oriented x3 Psych: COMMON NORMALS: mental status grossly normal Data 09/21/22 05:08 09/21/22 05:00 Micro: Microbiology 09/21/22 09:45 Blood Culture - Preliminary Blood SPECIMEN COLLECTED 09/21/22 09:48 Blood Culture - Preliminary Blood SPECIMEN COLLECTED 09/17/22 01:25 Blood Culture - Preliminary Blood A&P Assessment and plan (1) Pyelonephritis: Bilateral pyelonephritis Repeat abdominal CT scan yesterday showed 1.? Evidence of bilateral pyelonephritis with improved inflammatory stranding and edema compared to previous. Improved retroperitoneal fluid. 2.? Bilateral renal enlargement. No hydronephrosis. 3.? New small RIGHT and tiny LEFT pleural effusions with compressive atelectasis in the lung bases. Subsegmental atelectasis in RIGHT middle lobe and lingula. 4.? Small amount of free fluid in the pelvis. Urine distended bladder. 5.? No other significant changes compared to previous. Urine and blood cultures have been obtained Initially was placed on Rocephin. ESBL cultured so switched to meropenem September 17. Urine cultures grew out same organism Continue Zofran and Reglan for nausea No evidence of obstruction or abscess seen on initial CT scan and follow-up CT White blood cell count up to 1 today Her urine culture positive for ESBL Blood culture for set positive for E. coli and ESBL Her second set of blood cultures drawn 48 hours after, 1 out of 4 bottles positive for gram-negative rods Repeat blood cultures drawn today As she remains bacteremic on repeat blood cultures we will continue meropenem it is possible that we marquita the blood cultures too soon Follow repeat blood cultures Likely discharge tomorrow (2) Tobacco dependency: Encourage cessation. Offered nicotine patch which she refused at this time. (3) Hyperglycemia: Hemoglobin A1c was checked and not elevated (4) Hyponatremia: Does report decreased appetite, increase IV fluids to 125 cc recheck serum sodium at 2 PM Plan GI prophylaxis with Pepcid Full code Lovenox for DVT prophylaxis Attestations Medical Necessity Statement*: Patient requires hospitalization for recurrent bacteremia, pyelonephritis Coding Level of Care Code Acute Supervisor [facility] [facility] for [facility] Diagnoses Pyelonephritis N12 Tobacco dependency F17.200 Hyperglycemia R73.9 Hyponatremia E87.1
[2022-09-21] MEDS: enoxaparin 40 mg/0.4 mL Syringe SUBCUT (13:40)
[2022-09-21 14:55] LABS: Blood Urea Nitrogen 7 mg/dL (6-20); Calcium 8.2 mg/dL (8.5-10.5); Carbon Dioxide 21 mmol/L (22-29); Chloride 101 mmol/L (98-107); Glomerular Filtration Rate 111.9 mL/min (90-130); Glucose 122 mg/dL (65-115); Osmolality Calculated 273 mOsm/kg (285-295); Sodium 132 mmol/L (136-145)
[2022-09-21 14:56] LABS: Anion Gap 13.7 (5-19); Potassium 3.7 mmol/L (3.5-5.1)
[2022-09-21] MEDS: sodium chloride 0.9% 1,000 ML 75 ML IV (18:34)
[2022-09-22] MEDS: famotidine 20 mg/2 mL INJ IVP (00:29)
[2022-09-22 04:00] VITALS: BP 120/69; PULSE 98; RESP 18; TEMP 37.3; O2SAT 95
[2022-09-22] MEDS: meropenem 1,000 MG in sodium chloride 0.9% (plus) 50 ML 100 MG IV (04:52)
[2022-09-22 05:42] LABS: Basophils % 0.3 %; Eosinophils # 0.3 10^3/uL (0.0-0.8); Eosinophils % 2.6 %; Hematocrit 36.7 % (37.0-47.0); Hemoglobin 11.8 g/dL (11.5-15.3); Lymphocytes # 1.9 10^3/uL (0.8-4.8); Lymphocytes % 19.6 %; Mean Corpuscular HGB Conc 32.2 g/dL (30.0-36.0); Mean Corpuscular Hemoglobin 29.2 pg (28.0-34.0); Mean Corpuscular Volume 90.8 fl (81-99); Mean Platelet Volume 10.3 fL (7.4-10.4); Monocytes # 0.8 10^3/uL (0.2-0.9); Monocytes % 8.4 %; Neutrophils # 6.54 10^3/uL (1.8-7.7); Neutrophils % 68.2 %; Nucleated Red Blood Cells % 0 %; Platelet Count 379 10^3/cmm (130-400); Red Blood Count 4.04 10^6/uL (4.1-5.3); Red Cell Distribution Width 13.7 % (12.1-15.1); White Blood Count 9.6 10^3/uL (4.0-10.0)
[2022-09-22 06:03] LABS: Anion Gap 11.6 (5-19); Blood Urea Nitrogen 7 mg/dL (6-20); C Reactive Protein 45.9 mg/L (0.0-4.9); Calcium 8.3 mg/dL (8.5-10.5); Carbon Dioxide 21 mmol/L (22-29); Chloride 97 mmol/L (98-107); Glomerular Filtration Rate 111.9 mL/min (90-130); Glucose 112 mg/dL (65-115); Osmolality Calculated 261 mOsm/kg (285-295); Potassium 3.6 mmol/L (3.5-5.1); Sodium 126 mmol/L (136-145)
[2022-09-22 06:08] LABS: Procalcitonin 0.63 ng/mL (0-0.5)
[2022-09-22 08:00] VITALS: BP 117/76; PULSE 89; RESP 18; TEMP 36.5; O2SAT 98
--- NOTE | 2022-09-22 09:10 | PM.DCS ---
Discharge Providers Date of Admission: 09/16/22 08:32 Date of Discharge: September 22, 2022 Attending Provider at Admission: David Montana MD Attending Provider at Discharge: Leonidas Hoskins MD Consults: None Primary Care Provider: Ruben Wood MD Diagnoses at Discharge Discharge Diagnosis (1) Pyelonephritis: Status: Acute (2) Tobacco dependency: Status: Acute (3) Hyperglycemia: Status: Acute (4) Hyponatremia: Status: Acute Reason for Visit Reason for Visit: n/v/d Hospital Course Hospital Course Molly Dixon is a 37-year-old female with a past medical history significant for depression and tobacco use who presented with back pain, nausea, vomiting, and fever found to have bilateral pyelonephritis and ESBL E. coli bacteremia. She was treated with meropenem, but initially did not respond to treatment as intended. She remains symptomatic. Eventually symptoms did improve. She was found to have stress-induced hyperglycemia. She was found to have hyponatremia treated with IV fluids. Repeat CT scan showed improvement in pyelonephritis. She was discharged on ciprofloxacin based on sensitivities. She is to complete a total of 14 days of antibiotic therapy. She is to follow-up with her primary care provider in 1 to 2 weeks. Physical Exam Narrative: General: Patient is awake and alert. Head: Normocephalic. Atraumatic. EOM intact. Neck: No JVD. Cardiovascular: RRR. No gallops. No murmurs. No peripheral edema. Lungs: Clear to auscultation, no use of accessory muscles, no crackles or wheezes. Skin: No jaundice. No rashes. Abdomen: Normal bowel sounds, abdomen soft and nontender. Genito Urinary: Genital exam not performed since complaints not related. Rectal: Rectal exam not performed since no symptoms indicated blood loss. Extremities: No cyanosis or clubbing. Musculoskeletal: 5/5 strength, normal range of motion, no swollen or erythematous joints. Neurological: Moves all 4 extremities. No myoclonus. Discharge Data Studies Completed and Pending Completed Studies During Hospitalization Category Date Time Status CT abdomen pelvis w con* [id number] Routine Cat Scan 09/19/22 07:[address] kidney stone [id number] Stat Cat Scan 09/15/22 08:11 Completed XR chest 1V portable [id number] Stat Exams 09/15/22 06:34 Completed CV. echo complete* [id number] Routine Ultrasound 09/21/22 08:42 Completed US renal BI* [id number] Stat Ultrasound 09/21/22 08:42 Completed Pending at discharge Category Date Time Status Basic Metabolic Panel AM LABS Lab 09/23/22 04:00 Ordered Blood Culture AM LABS Lab 09/17/22 01:27 Results Blood Culture Stat Lab 09/21/22 09:45 Results C Reactive Protein AM LABS Lab 09/23/22 04:00 Ordered Complete Blood Count w/Auto AM LABS Lab 09/23/22 04:00 Ordered Magnesium AM LABS Lab 09/23/22 04:00 Ordered Procalcitonin AM LABS Lab 09/23/22 04:00 Ordered Radiology Impressions Chest X-Ray 09/15/22 06:34 IMPRESSION: No acute findings. Abdomen/Pelvis CT 09/19/22 07:43 IMPRESSION: 1. Evidence of bilateral pyelonephritis with improved inflammatory stranding and edema compared to previous. Improved retroperitoneal fluid. 2. Bilateral renal enlargement. No hydronephrosis. 3. New small RIGHT and tiny LEFT pleural effusions with compressive atelectasis in the lung bases. Subsegmental atelectasis in RIGHT middle lobe and lingula. 4. Small amount of free fluid in the pelvis. Urine distended bladder. 5. No other significant changes compared to previous. Renal Ultrasound 09/21/22 08:42 IMPRESSION: No acute abnormality identified. Laboratory Results WBC 9.6 10^3/uL (4.0-10.0) 09/22/22 05:33 RBC 4.04 10^6/uL (4.1-5.3) L 09/22/22 05:33 Hgb 11.8 g/dL (11.5-15.3) 09/22/22 05:33 Hct 36.7 % (37.0-47.0) L 09/22/22 05:33 MCV 90.8 fl (81-99) D 09/22/22 05:33 MCH 29.2 pg (28.0-34.0) 09/22/22 05:33 MCHC 32.2 g/dL (30.0-36.0) D 09/22/22 05:33 RDW 13.7 % (12.1-15.1) 09/22/22 05:33 Plt Count 379 10^3/cmm (130-400) D 09/22/22 05:33 MPV 10.3 fL (7.4-10.4) 09/22/22 05:33 Neut % (Auto) 68.2 % 09/22/22 05:33 Lymph % (Auto) 19.6 % 09/22/22 05:33 [place] % (Auto) 8.4 % 09/22/22 05:33 Eos % (Auto) 2.6 % 09/22/22 05:33 Baso % (Auto) 0.3 % 09/22/22 05:33 Neut # (Auto) 6.54 10^3/uL (1.8-7.7) 09/22/22 05:33 Lymph # (Auto) 1.9 10^3/uL (0.8-4.8) 09/22/22 05:33 [place] # (Auto) 0.8 10^3/uL (0.2-0.9) 09/22/22 05:33 Eos # (Auto) 0.3 10^3/uL (0.0-0.8) 09/22/22 05:33 Baso # (Auto) 0.0 10^3/uL (0.0-0.1) 09/22/22 05:33 Nucleated RBC % (auto) 0 % 09/22/22 05:33 Total Counted 100 (0-100) 09/16/22 01:15 Atypical Lymphs % 0.0 % (0-5) 09/16/22 01:15 Absolute Neutrophils 16.7 10^3/cmm (1.4-6.5) H 09/16/22 01:15 Segmented Neutrophils 79 % 09/16/22 01:15 Abs Segm Neuts (Man) 14.1 10/cmm (1.6-7.1) H 09/16/22 01:15 Band Neutrophils 15.0 % 09/16/22 01:15 Abs Band Neuts (Man) 2.7 10^3/cmm (0.0-1.2) H 09/16/22 01:15 Absolute Lymphocytes 0.5 10^3/cmm (1.2-3.4) L 09/16/22 01:15 Lymphocytes (Manual) 3 % 09/16/22 01:15 Monocytes (Manual) 3.0 % 09/16/22 01:15 Absolute Monocytes 0.5 10^3/cmm (0.1-0.6) 09/16/22 01:15 Eosinophils (Manual) 0 % 09/16/22 01:15 Absolute Eosinophils 0.0 10^3/cmm (0.0-0.7) 09/16/22 01:15 Basophils (Manual) 0.0 % 09/16/22 01:15 Absolute Basophils 0.0 10^3/cmm (0.0-0.2) 09/16/22 01:15 Nucleated RBCs # 0.0 /100WBC 09/22/22 05:33 Platelet Estimate Normal (Normal) 09/16/22 01:15 Sodium 126 mmol/L (136-145) L 09/22/22 05:33 Potassium 3.6 mmol/L (3.5-5.1) 09/22/22 05:33 Chloride 97 mmol/L (98-107) L 09/22/22 05:33 Carbon Dioxide 21 mmol/L (22-29) L 09/22/22 05:33 Anion Gap 11.6 (5-19) 09/22/22 05:33 BUN 7 mg/dL (6-20) 09/22/22 05:33 Creatinine 0.6 mg/dL (0.5-0.9) 09/22/22 05:33 GFR Calculation 111.9 mL/min (90-130) 09/22/22 05:33 Glucose 112 mg/dL (65-115) 09/22/22 05:33 Estimat Average Glucose 111 09/15/22 06:30 Hemoglobin A1c 5.5 % (4.0-6.0) 09/15/22 06:30 Calculated Osmolality 261 mOsm/kg (285-295) L 09/22/22 05:33 Lactic Acid 2.0 mmol/L (0.5-2.2) 09/15/22 06:30 Calcium 8.3 mg/dL (8.5-10.5) L 09/22/22 05:33 Magnesium 2.0 mg/dL (1.7-2.3) 09/22/22 05:33 Total Bilirubin 0.4 mg/dL (0.15-1.2) 09/19/22 05:18 AST 23 U/L (0-32) 09/19/22 05:18 ALT 13 U/L (0-33) 09/19/22 05:18 Alkaline Phosphatase 72 U/L (35-105) 09/19/22 05:18 C-Reactive Protein 45.9 mg/L (0.0-4.9) H 09/22/22 05:33 Total Protein 5.1 g/dL (6.6-8.7) L 09/19/22 05:18 Albumin 2.2 g/dL (3.5-5.2) L 09/19/22 05:18 Globulin 2.9 g/dL (1.3-4.6) 09/19/22 05:18 Lipase 6 U/L (13-60) L 09/15/22 06:30 Procalcitonin 0.63 ng/mL (0-0.5) H 09/22/22 05:33 HCG, Qual Negative (Negative) 09/15/22 06:30 Urine Color Yellow (Yellow) 09/15/22 07:33 Urine Appearance Cloudy (CLEAR) A 09/15/22 07:33 Urine pH 8 (5-7) H 09/15/22 07:33 Ur Specific [place] 1.010 (1.005-1.030) 09/15/22 07:33 Urine Protein 1+ (Negative) H 09/15/22 07:33 Urine Glucose (UA) Norm (Normal) 09/15/22 07:33 Urine Ketones Negative (Negative) 09/15/22 07:33 Urine Blood Neg (Negative) 09/15/22 07:33 Urine Nitrate Positive (Negative) H 09/15/22 07:33 Urine Bilirubin Neg (Negative) 09/15/22 07:33 Prot Sulfosalicylic Acd Positive (Negative) 09/15/22 07:33 Urine Urobilinogen Norm mg/dL (Negative) 09/15/22 07:33 Ur Leukocyte Esterase 1+ (Negative) H 09/15/22 07:33 Urine RBC 0-4 /hpf (0-2) H 09/15/22 07:33 Urine WBC 80-100 /hpf (0-5) H 09/15/22 07:33 Ur Squamous Epith Cells 5-10 /hpf (0-5) H 09/15/22 07:33 Amorphous Sediment Not Reportable 09/15/22 07:33 Urine Bacteria 3+ /hpf (NONE) H 09/15/22 07:33 Urine Mucus 1+ /hpf 09/15/22 07:33 Coronavirus 229E (PCR) Not detected (NOT DETECT) 09/19/22 14:05 Influenza Type A Ag negative (Negative) 09/19/22 14:05 Influenza Type B Ag negative (Negative) 09/19/22 14:05 SARS-CoV-2 (PCR) Not detected (NOT DETECT) 09/19/22 14:05 Vitals Last Vital Signs Temp 97.7 F 09/22/22 08:00 Pulse 89 09/22/22 08:00 Resp 18 09/22/22 08:00 BP 117/76 09/22/22 08:00 Pulse Ox 98 09/22/22 08:00 O2 Del Method 09/22/22 08:00 Discharge Plan Discharge Patient Disposition: Home Condition: Stable Prescriptions: New ciprofloxacin HCl 500 mg tablet 500 mg PO BID Qty: 18 0RF Percocet 5-325 mg tablet 1 tab PO TID PRN (Reason: pain) 7 Days Qty: 20 0RF Continued aspirin 81 mg Tablet,Delayed Release (Dr/Ec) 81 mg PO DAILY melatonin 10 mg Tablet 20 mg PO BEDTIME Discharge Orders: Discharge Order (Routine); Ordered 09/22/22 Ordered By: Leonidas Hoskins Referrals: Ruben Wood MD [Primary Care Provider] - 4-7 days Discharge Diet: Usual diet Discharge Activity: Resume usual activity Patient Instructions: Opioid Safety, Pain Management Plan of Treatment: 1. Take medications as prescribed. 2. Follow up with PCP within 1 week. Discharge Attestations Time Spent in Discharge Care*: greater than 30 min Quality Metrics Clinical Quality Measures [ No reported AMI, CVA or VTE this stay] Coding Level of Care Code Acute Chg FW DC note Diagnoses Pyelonephritis N12 Tobacco dependency F17.200 Hyperglycemia R73.9 Hyponatremia E87.1
[2022-09-22 09:20] VITALS: BP 117/76; PULSE 89; RESP 18; TEMP 36.5; O2SAT 98
== END 2022-09-22 10:00 | disposition home or self-care (01) | DRG 690 ==
LOC: ER 11:28 → MEDSURG 13:30
PROVIDERS: Family Medicine; Admitting Provider Internal Medicine; Emergency Provider Family Medicine; PCP Family Medicine; Visit Provider Internal Medicine
DX: N12 Tubulo-interstitial nephritis, not specified as acute or chronic (principal); E87.1 Hypo-osmolality and hyponatremia; F17.210 Nicotine dependence, cigarettes, uncomplicated; R73.9 Hyperglycemia, unspecified; F32.A Depression, unspecified; B96.20 Unspecified Escherichia coli [E. coli] as the cause of diseases classified elsewhere; B96.89 Other specified bacterial agents as the cause of diseases classified elsewhere; Z79.82 Long term (current) use of aspirin
CPT/HCPCS: 36415; 51798; 71045; 74176; 74177; 76770; 80048; 80053; 81001; 83036; 83605; 83690; 83735; 84145; 84703; 85007; 85025; 86140; 87040; 87077; 87086; 87150; 87186; 87205; 87635; 87804; 93005; 93306; 96365; 96366; 96372; 96375; 99285; G0378; J0696; J1170; J1200; J1650; J2185; J2270; J2405; J2550; J2765; J3480; J3490; J7030; Q9967